=== PATIENT | male | born 1940 | race Caucasian/White ===

== ENCOUNTER 2019-08-13 14:12 | Inpatient (IN) | payer MEDICARE, BC ==
[~2019-08-13] VITALS: Ht 170.2 cm; Wt 110.5 kg
[2019-08-13] MEDS ORDERED: NEURONTIN600 MG PO (14:48)
[2019-08-13] MEDS ORDERED: METOPROLOL TART25 MG PO (14:48)
[2019-08-13] MEDS ORDERED: NAPROXEN250 MG PO (14:48)
[2019-08-13] MEDS ORDERED: GLIPIZIDE10 MG PO (14:49)
[2019-08-13] MEDS ORDERED: LISINOPRIL10 MG PO (14:49)
[2019-08-13] MEDS ORDERED: POTASSIUM CHLO10 ME1 PO (14:49)
[2019-08-13] MEDS ORDERED: FUROSEMIDE20 MG PO (14:49)
[2019-08-13 15:21] LABS: BASOPHILS 0.3 % (0-2); EOSINOPHILS 0.3 % (0-7); HEMATOCRIT 36.6 % (42.0-54.0); HEMOGLOBIN 13.2 g/dL (13.5-17.5); IMMATURE GRANULOCYTES 0.8 % (0-5); LYMPHOCYTES 8.9 % (15-50); MCH 30.8 pg (26.0-34.0); MCHC 36.1 g/dL (31.0-37.0); MCV 85.5 fL (80.0-100.0); MEAN PLATELET VOLUME 10.4 fL (7.4-10.4); MONOCYTES 7.7 % (2-11); PLATELET COUNT 185 10x3/uL (130-400); RBC 4.28 10x6/uL (4.20-6.10); WBC 7.8 10x3/uL (4.8-10.8)
[2019-08-13 15:41] LABS: APTT 35.7 SECONDS (22.8-39.4); INR 1.27 (0.85-1.17); PROTIME 15.8 SECONDS (11.6-15.0)
[2019-08-13 16:19] LABS: ALKALINE PHOSPHATASE 167 U/L (46-116); ALT (SGPT) 19 U/L (10-68); BILIRUBIN - TOTAL 1.15 mg/dL (0.2-1.3); CALCIUM 8.5 mg/dL (8.5-10.1); CARBON DIOXIDE 23.9 mmol/L (21.0-32.0); CKMB 1.6 U/L (0.0-3.6); CREATINE KINASE 53 UL (21-232); CREATININE - SERUM 0.8 mg/dL (0.6-1.3); GLUCOSE 181 mg/dL (74-106); POTASSIUM - SERUM 4.5 mmol/L (3.5-5.1); PRO BNP 1732 pg/mL (0-450); PROTEIN - SERUM 7.1 g/dL (6.4-8.2); UREA NITROGEN 8 mg/dL (7-18); eGFR NON AFRICAN AMERICAN > 90 mL/min (90-120)
[2019-08-13 16:20] LABS: CALC OSMOLALITY 233 mosm/kg (275-300); TROPONIN-I < 0.017 ng/mL (0.000-0.060)
[2019-08-13 16:22] LABS: CHLORIDE - SERUM 81 mmol/L (98-107); SODIUM 114 mmol/L (136-145)
--- NOTE | 2019-08-13 19:02 | NUR ---
GETTING READY TO TRANSPORT PT AND CALLED BACK AND STATED ROOM WAS DIRTY
[2019-08-13] MEDS ORDERED: LEVOFLOXACIN500 MG PO (21:48)
[2019-08-13 21:49] VITALS: BP 185/94; Ht 170.2 cm; Wt 110.5 kg
--- NOTE | 2019-08-13 21:55 | NUR ---
RECIEVED REPORT FROM ER. PT ARRIVED BY BED. VSS, AAOX3, APPEARS LETHARGIC. FAMILY AT BEDSIDE. BP 185/94 AT THIS TIME. WILL NOTIFY SENIOR ACCOUNTING MANAGER OUTDOOR GUIDE. RENAL AND INSURANCE CODER PAGED ORDERED BY GAMAL ROJO. AWAITING CALL-BACK AT THIS TIME. AZITHROMYCIN STARTED ORDERED. INITIAL ASSESSMENT COMPLETED. PT DENIES ANY FURTHER NEEDS AT THIS TIME. WILL CPOC. CL WITHIN REACH.
--- NOTE | 2019-08-13 23:09 | NUR ---
CLONIDINE 0.1MG GIVEN FOR BP OF 185/9. WILL CTM.
--- NOTE | 2019-08-13 23:10 | NUR ---
PAGED BOTH RENAL AND PULMONOLOGY FOR THE SECOND TIME, STILL NO CALL-BACK AT THIS TIME.
[2019-08-13 23:30] VITALS: BP 188/82
[2019-08-14 01:36] LABS: CALCIUM 8.2 mg/dL (8.5-10.1); CARBON DIOXIDE 22.3 mmol/L (21.0-32.0); CREATININE - SERUM 0.7 mg/dL (0.6-1.3); GLUCOSE 172 mg/dL (74-106); POTASSIUM - SERUM 4.3 mmol/L (3.5-5.1); UREA NITROGEN 6 mg/dL (7-18); eGFR NON AFRICAN AMERICAN > 90 mL/min (90-120)
[2019-08-14 01:37] LABS: CALC OSMOLALITY 236 mosm/kg (275-300)
[2019-08-14 01:38] LABS: CHLORIDE - SERUM 83 mmol/L (98-107); SODIUM 116 mmol/L (136-145)
--- NOTE | 2019-08-14 02:07 | NUR ---
RECIEVED REPORT SBOUT PT'S LAB RESULTS SODIUM 116, CHLORIDE 83. NOTIFIED CIRILO YEUNG. GAMAL KERR PAGED DR. RO. NO CALL-BACK FROM DR. RO AT THIS TIME. PLUMBING FOREMAN ALSO PAGED FOR THE THIRD TIME, NO CALL-BACK EITHER. WILL CTM PT.
[2019-08-14 04:00] VITALS: BP 187/92
[2019-08-14 06:20] LABS: BASOPHILS 0.2 % (0-2); EOSINOPHILS 0.4 % (0-7); HEMATOCRIT 34.9 % (42.0-54.0); HEMOGLOBIN 12.8 g/dL (13.5-17.5); LYMPHOCYTES 12.2 % (15-50); MCH 30.9 pg (26.0-34.0); MCHC 36.7 g/dL (31.0-37.0); MCV 84.3 fL (80.0-100.0); MEAN PLATELET VOLUME 10.3 fL (7.4-10.4); MONOCYTES 10.5 % (2-11); NEUTROPHILS 75.7 % (40-80); PLATELET COUNT 203 10x3/uL (130-400); RBC 4.14 10x6/uL (4.20-6.10); RDW 12.9 % (11.5-14.5)
[2019-08-14 06:36] LABS: CALCIUM 8.5 mg/dL (8.5-10.1); CARBON DIOXIDE 23.4 mmol/L (21.0-32.0); CREATININE - SERUM 0.8 mg/dL (0.6-1.3); GLUCOSE 166 mg/dL (74-106); MAGNESIUM - SERUM 1.7 mg/dL (1.8-2.4); PHOSPHOROUS 3.3 mg/dL (2.5-4.9); POTASSIUM - SERUM 4.4 mmol/L (3.5-5.1); UREA NITROGEN 7 mg/dL (7-18); eGFR NON AFRICAN AMERICAN > 90 mL/min (90-120)
[2019-08-14 06:39] LABS: CALC OSMOLALITY 239 mosm/kg (275-300)
[2019-08-14 06:40] LABS: CHLORIDE - SERUM 84 mmol/L (98-107); SODIUM 118 mmol/L (136-145)
--- NOTE | 2019-08-14 07:36 | NUR ---
PT RESTING. RR EVEN AND UNLABORED. DENIES NEEDS OR PAIN AT THIS TIME. FAMILY MEMEBER @ BEDSIDE. BED IN LOWEST POSITION. CALL LIGHT WITHIN REACH. WILL CONTINUE TO MONITOR.
[2019-08-14 08:27] VITALS: BP 172/86
[2019-08-14 10:40] LABS: APPEARANCE CLEAR (CLEAR); BACTERIA FEW /hpf (NEGATIVE); BILIRUBIN NEGATIVE (NEGATIVE); COLOR YELLOW (YELLOW); EPITHELIAL CELLS OCC /hpf (0-5); GLUCOSE 100 mg/dL (NEGATIVE); KETONE LARGE mg/dL (NEGATIVE); NITRITE NEGATIVE (NEGATIVE); PROTEIN TRACE mg/dL (NEGATIVE); RED CELLS - URINE OCC /hpf (0-5); SPECIFIC GRAVITY 1.015 (1.005-1.020); WHITE CELLS - URINE RARE /hpf (NEGATIVE)
[2019-08-14 11:11] VITALS: BP 172/91
[2019-08-14 12:33] LABS: CALCIUM 8.2 mg/dL (8.5-10.1); CARBON DIOXIDE 24.6 mmol/L (21.0-32.0); CREATININE - SERUM 0.8 mg/dL (0.6-1.3); GLUCOSE 194 mg/dL (74-106); POTASSIUM - SERUM 4.6 mmol/L (3.5-5.1); eGFR NON AFRICAN AMERICAN > 90 mL/min (90-120)
[2019-08-14 12:35] LABS: CALC OSMOLALITY 238 mosm/kg (275-300); UREA NITROGEN 9 mg/dL (7-18)
[2019-08-14 12:39] LABS: CHLORIDE - SERUM 84 mmol/L (98-107); SODIUM 116 mmol/L (136-145)
--- NOTE | 2019-08-14 15:03 | NUR ---
OT NOTE: ATTEMPTED INITITAL EVAL.. FAMILY MEMBER AT BEDSIDE. PT REPORTS THAT HIS SONS LIVE WITH HIM. STATES THAT HE WAS NOT USING AD OR 02 AT HOME PRIOR TO ADMISSION. STATES THAT HE WAS PERFORMING ADLS WITHOUT ASSIST. PT REQUESTED TO WAIT UNTIL TOMORROW TO COMPLETE EVAL. STATES THAT HE JUST GOT BACK IN BED AFTER WALKING TO BATHROOM WITH ASSIST FROM SON. STATES THAT HE HAS INCREASED DIFFICULTY GETTING IN AND OUT OF BED AND WAS FINALLY NOW COMFORTABLE. WILL COMPLETE FULL EVAL TOMORROW. THANK YOU FOR REFERAL, KEESHA SPENCER, OTR/L [phone]
[2019-08-14 15:06] VITALS: BP 171/83
--- NOTE | 2019-08-14 15:08 | NUR ---
OT NOTE: PT OUT OF ROOM DURING ATTEMPT OF EVAL. WILL ASSESS TOMORROW. KEESHA SWEET, OTR/L
--- NOTE | 2019-08-14 15:25 | NUR ---
I have reviewed this patient and I concur with the Shift Assessment completed by the Licensed Practical Nurse today this shift.
[2019-08-14 18:15] LABS: CALCIUM 8.3 mg/dL (8.5-10.1); CARBON DIOXIDE 25.7 mmol/L (21.0-32.0); CREATININE - SERUM 0.8 mg/dL (0.6-1.3); GLUCOSE 178 mg/dL (74-106); POTASSIUM - SERUM 4.2 mmol/L (3.5-5.1); UREA NITROGEN 7 mg/dL (7-18); eGFR NON AFRICAN AMERICAN > 90 mL/min (90-120)
[2019-08-14 18:20] LABS: CALC OSMOLALITY 238 mosm/kg (275-300); CHLORIDE - SERUM 83 mmol/L (98-107); SODIUM 117 mmol/L (136-145)
--- NOTE | 2019-08-14 19:15 | NUR ---
REPORT RECEIVED, WILL CONTINUE POC. PATIENT IS AAOX4, IN HIGH FOWLERS POSITION. PIV TO LT FA, ABX INFUSING AT THIS TIME. NO S/S OF DISTRESS OBSERVED AT THIS TIME, RR EVEN AND UNLABORED. PATIENT DENIES NEEDS AT THIS TIME. CL IN REACH, BED LOCKED AND LOWERED. WILL CTM.
[2019-08-14 20:00] VITALS: BP 146/80
--- NOTE | 2019-08-14 20:00 | NUR ---
PIV TO LT FA INFILTRATED, DC'D WITH CATH TIP INTACT, SECURED WITH BANDAID. NEW PIV TO LT HAND WITH 20G X1 ATTEMPT, GOOD BLOOD RETURN, FLUSHED WITH EASE. INFUSING THAT LAST OF ABX. PATIENT TOLERATED WELL.
[2019-08-14 23:00] VITALS: BP 152/73
--- NOTE | 2019-08-15 00:02 | NUR ---
PATIENT SON TO NURSES STATION CONCERNED ABOUT PATIENT INTERMITTENTLY JERKING HIS LEGS IN HIS SLEEP. CHECK ON PATIENT, VSS, WARM BLANKET APPLIED.
[2019-08-15 04:00] VITALS: BP 142/56
[2019-08-15 04:33] LABS: BASOPHILS 0.3 % (0-2); EOSINOPHILS 1.7 % (0-7); HEMATOCRIT 36.4 % (42.0-54.0); HEMOGLOBIN 13.1 g/dL (13.5-17.5); LYMPHOCYTES 16.2 % (15-50); MCH 30.5 pg (26.0-34.0); MCV 84.8 fL (80.0-100.0); MEAN PLATELET VOLUME 10.4 fL (7.4-10.4); MONOCYTES 14.5 % (2-11); NEUTROPHILS 66.3 % (40-80); PLATELET COUNT 224 10x3/uL (130-400); RBC 4.29 10x6/uL (4.20-6.10); RDW 13.1 % (11.5-14.5)
[2019-08-15 04:40] LABS: WBC 10.3 10x3/uL (4.8-10.8)
[2019-08-15 04:57] LABS: CALC OSMOLALITY 244 mosm/kg (275-300); CALCIUM 8.5 mg/dL (8.5-10.1); CARBON DIOXIDE 25.1 mmol/L (21.0-32.0); CHLORIDE - SERUM 87 mmol/L (98-107); CREATININE - SERUM 0.8 mg/dL (0.6-1.3); GLUCOSE 138 mg/dL (74-106); PHOSPHOROUS 3.9 mg/dL (2.5-4.9); POTASSIUM - SERUM 3.8 mmol/L (3.5-5.1); SODIUM 121 mmol/L (136-145); THYROID STIMULATING HORMONE 1.26 uIU/mL (0.36-3.74); eGFR NON AFRICAN AMERICAN > 90 mL/min (90-120)
[2019-08-15 04:58] LABS: UREA NITROGEN 10 mg/dL (7-18)
--- NOTE | 2019-08-15 07:21 | NUR ---
PT RESTING. RR EVEN AND UNLABORED. FAMILY MEMBER AT BEDSIDE. NO DISTRESS NOTED. BED IN LOWEST POSITION. CALL LIGHT WITHIN REACH. WILL CONTINUE TO MONITOR.
[2019-08-15 08:48] VITALS: BP 168/68
--- NOTE | 2019-08-15 12:01 | NUR ---
I have reviewed this patient and I concur with the Shift Assessment completed by the Licensed Practical Nurse today this shift.
[2019-08-15 13:18] VITALS: BP 157/73
--- NOTE | 2019-08-15 15:52 | NUR ---
PT LEFT FOR PROCEDURE VIA BED. CONSENTS SIGNED AND IN CHART
[2019-08-15 17:09] LABS: PROTEIN - BODY FLUID 2.6 G/DL
[2019-08-15 17:14] VITALS: BP 142/76
--- NOTE | 2019-08-15 19:15 | NUR ---
REPORT RECEIVED, WILL CONTINUE POC. PATIENT IS AAOX4, SITTING UP IN BED, FAMILY AT BED. NO S/S OF DISTRESS OBSERVED, RR EVEN AND UNLABORED ON ROOM AIR. PATIENT DENIES NEEDS AT THIS TIME. CL IN REACH, BED LOCKED AND LOWERED. WILL CTM.
--- NOTE | 2019-08-15 19:50 | NUR ---
PT C/O PAIN AT THORACENTESIS SITE. PAGED GAMAL THAPA FOR PAIN MEDS. AWAITING CALLBACK.
[2019-08-15 20:00] VITALS: BP 141/68
[2019-08-16] VITALS (7 sets, daily range): BP systolic 121–166; BP diastolic 65–100
--- NOTE | 2019-08-16 05:10 | NUR ---
I have reviewed this patient and I concur with the Shift Assessment completed by the Licensed Practical Nurse today this shift.
[2019-08-16 05:21] LABS: BASOPHILS 0.2 % (0-2); EOSINOPHILS 1.6 % (0-7); HEMATOCRIT 38.4 % (42.0-54.0); HEMOGLOBIN 13.7 g/dL (13.5-17.5); MCH 30.6 pg (26.0-34.0); MCHC 35.7 g/dL (31.0-37.0); MCV 85.7 fL (80.0-100.0); MEAN PLATELET VOLUME 9.8 fL (7.4-10.4); MONOCYTES 13.3 % (2-11); NEUTROPHILS 72.9 % (40-80); PLATELET COUNT 199 10x3/uL (130-400); RBC 4.48 10x6/uL (4.20-6.10); RDW 13.2 % (11.5-14.5); WBC 9.3 10x3/uL (4.8-10.8)
[2019-08-16 05:39] LABS: CALC OSMOLALITY 258 mosm/kg (275-300); CALCIUM 8.4 mg/dL (8.5-10.1); CARBON DIOXIDE 28.9 mmol/L (21.0-32.0); CHLORIDE - SERUM 92 mmol/L (98-107); CREATININE - SERUM 0.8 mg/dL (0.6-1.3); GLUCOSE 190 mg/dL (74-106); PHOSPHOROUS 4.2 mg/dL (2.5-4.9); POTASSIUM - SERUM 3.5 mmol/L (3.5-5.1); SODIUM 127 mmol/L (136-145); UREA NITROGEN 11 mg/dL (7-18); eGFR NON AFRICAN AMERICAN > 90 mL/min (90-120)
--- NOTE | 2019-08-16 07:30 | NUR ---
REPORT RECIEVED. PT CURRENTLY RECIEVING BREATHING TREATMENT WITH RT. HE HAS A L HAND PIV THAT IS SL. PT IS AWARE OF FLUID REST. OF 1200ML/DAY. BED LOCKED AND IN LOWEST POSITION, CALL LIGHT WITHIN REACH. WILL CTM
--- NOTE | 2019-08-16 19:00 | NUR ---
PTs SON CAME RUNNING TO NURSES STATION STATING THAT PT WAS HAVING A "SEIZURE" UPON ARRIVAL PTS BILATERAL UPPER EXTREMITIES SHAKING. PT A&O X4 AND STATED THAT HE WAS "JUST COLD" FSBS 240, BP 146/100 HR100 SPO2 97% AND WAS ASSES BY RTT. NOTIFIED ALIA RICHARDSON APN, RECEIVED ORDERS FOR STAT CBC AND BMP. PT NO LONGER SHAKING, CALL LIGHT IN REACH, WILL CTM.
[2019-08-16 20:24] LABS: BASOPHILS 0.5 % (0-2); EOSINOPHILS 1.6 % (0-7); HEMATOCRIT 39.3 % (42.0-54.0); HEMOGLOBIN 13.8 g/dL (13.5-17.5); IMMATURE GRANULOCYTES 0.8 % (0-5); MCH 30.8 pg (26.0-34.0); MCHC 35.1 g/dL (31.0-37.0); MCV 87.7 fL (80.0-100.0); MEAN PLATELET VOLUME 9.7 fL (7.4-10.4); MONOCYTES 3.9 % (2-11); NEUTROPHILS 82.2 % (40-80); PLATELET COUNT 179 10x3/uL (130-400); RBC 4.48 10x6/uL (4.20-6.10); RDW 13.2 % (11.5-14.5); WBC 6.5 10x3/uL (4.8-10.8)
[2019-08-16 20:43] LABS: CALC OSMOLALITY 262 mosm/kg (275-300); CALCIUM 7.9 mg/dL (8.5-10.1); CARBON DIOXIDE 29.7 mmol/L (21.0-32.0); CHLORIDE - SERUM 93 mmol/L (98-107); GLUCOSE 229 mg/dL (74-106); POTASSIUM - SERUM 3.4 mmol/L (3.5-5.1); SODIUM 128 mmol/L (136-145); UREA NITROGEN 10 mg/dL (7-18); eGFR NON AFRICAN AMERICAN 77 mL/min (90-120)
[2019-08-17 04:36] VITALS: BP 148/90
[2019-08-17 06:08] LABS: BASOPHILS 0.5 % (0-2); EOSINOPHILS 2.8 % (0-7); HEMATOCRIT 39.9 % (42.0-54.0); HEMOGLOBIN 13.8 g/dL (13.5-17.5); IMMATURE GRANULOCYTES 0.8 % (0-5); LYMPHOCYTES 8.7 % (15-50); MCH 30.5 pg (26.0-34.0); MCHC 34.6 g/dL (31.0-37.0); MCV 88.3 fL (80.0-100.0); MEAN PLATELET VOLUME 9.9 fL (7.4-10.4); MONOCYTES 10.8 % (2-11); NEUTROPHILS 76.4 % (40-80); PLATELET COUNT 183 10x3/uL (130-400); RBC 4.52 10x6/uL (4.20-6.10); RDW 13.6 % (11.5-14.5)
[2019-08-17 06:22] LABS: CALC OSMOLALITY 264 mosm/kg (275-300); CALCIUM 8.2 mg/dL (8.5-10.1); CARBON DIOXIDE 28.9 mmol/L (21.0-32.0); CHLORIDE - SERUM 94 mmol/L (98-107); CREATININE - SERUM 0.8 mg/dL (0.6-1.3); GLUCOSE 196 mg/dL (74-106); PHOSPHOROUS 4.3 mg/dL (2.5-4.9); POTASSIUM - SERUM 3.4 mmol/L (3.5-5.1); SODIUM 130 mmol/L (136-145); UREA NITROGEN 9 mg/dL (7-18); eGFR NON AFRICAN AMERICAN > 90 mL/min (90-120)
[2019-08-17 06:26] LABS: WBC 8.3 10x3/uL (4.8-10.8)
[2019-08-17 08:00] VITALS: BP 134/81
--- NOTE | 2019-08-17 08:02 | NUR ---
REPORT RECIEVED. PT SITTING SEMI FOWLERS IN BED. RR EVEN AND NONLABORED ON 2L NC. PT HAS A R HAND PIV THAT IS SL. PT UNDERSTANDS THAT HE IS ON A 1200 ML FLUID RESTRICTION. BED LOCKED AND IN LOWEST POSITION, CALL LIGHT WITHIN REACH. WILL CTM
[2019-08-17 12:00] VITALS: BP 144/74
[2019-08-17 16:00] VITALS: BP 141/72
--- NOTE | 2019-08-17 19:00 | NUR ---
REPORT RECEIVED. PT UP IN BED WATCHING TV. RR EVEN AND UNLABORED ON 3L NC. NO S/SX OF DISTRESS OBSERVED AT THIS TIME. PT DENIES PAIN OR DISCOMFORT AT THIS TIME. PT HAS NO IV AND IS REFUSING ONE AT THIS TIME. NO NEEDS EXPRESSED. CALL LIGHT IN REACH. WILL CTM.
[2019-08-17 20:30] VITALS: BP 128/44
[2019-08-18 00:20] VITALS: BP 159/80
[2019-08-18 04:30] VITALS: BP 131/80
[2019-08-18 05:32] LABS: BASOPHILS 0.5 % (0-2); HEMATOCRIT 41.2 % (42.0-54.0); HEMOGLOBIN 14.1 g/dL (13.5-17.5); IMMATURE GRANULOCYTES 0.6 % (0-5); LYMPHOCYTES 14.9 % (15-50); MCH 30.7 pg (26.0-34.0); MCHC 34.2 g/dL (31.0-37.0); MCV 89.8 fL (80.0-100.0); MEAN PLATELET VOLUME 9.7 fL (7.4-10.4); MONOCYTES 10.9 % (2-11); NEUTROPHILS 69.1 % (40-80); PLATELET COUNT 205 10x3/uL (130-400); RBC 4.59 10x6/uL (4.20-6.10); RDW 13.5 % (11.5-14.5); WBC 8.3 10x3/uL (4.8-10.8)
[2019-08-18 05:44] LABS: CALC OSMOLALITY 265 mosm/kg (275-300); CALCIUM 8.3 mg/dL (8.5-10.1); CARBON DIOXIDE 32.3 mmol/L (21.0-32.0); CHLORIDE - SERUM 93 mmol/L (98-107); CREATININE - SERUM 0.9 mg/dL (0.6-1.3); GLUCOSE 214 mg/dL (74-106); PHOSPHOROUS 4.1 mg/dL (2.5-4.9); POTASSIUM - SERUM 3.6 mmol/L (3.5-5.1); SODIUM 130 mmol/L (136-145); UREA NITROGEN 9 mg/dL (7-18); eGFR NON AFRICAN AMERICAN 87 mL/min (90-120)
--- NOTE | 2019-08-18 07:27 | NUR ---
PT RECEIVED SITTING UP IN BED, COMPLAINTS OF ITCHING TO BACK. AREA OF BRUISING AND OPENED BLISTER NOTED. STATES ITS FROM THORACENTESIS SITE.
[2019-08-18 08:09] VITALS: BP 122/47
[2019-08-18 11:32] VITALS: BP 118/54
[2019-08-18] MEDS ORDERED: LASIX40 MG PO (14:17)
[2019-08-18] MEDS ORDERED: TESSALON PERLE100 MG PO (14:18)
[2019-08-18] MEDS ORDERED: IPRAT-ALBUT 0.5-3 ML INH (14:18)
[2019-08-18] MEDS ORDERED: PROTONIX40 MG PO (14:18)
[2019-08-18] MEDS ORDERED: SINGULAIR10 MG PO (14:18)
[2019-08-18] MEDS ORDERED: PULMICORT0.5 MG/21 UPD (14:18)
--- NOTE | 2019-08-18 14:44 | NUR ---
UPON ADMIT PATIENT HAS NOT HAD A FLU SHOT. WHEN QUESTIONED, HE STATES THAT HE IS ALLERGIC TO THE EGG IN IT. THIS IS NOT ON ALLERGY LIST. MARTÍN ARELLANO PRIMARY NURSE TO ADD THIS TO LIST.
[2019-08-18 15:22] VITALS: BP 131/69
--- NOTE | 2019-08-18 15:35 | NUR ---
DISCHARGE INSTRUCTIONS REVIEWED WITH PT AND SON. IV OUT, TELEMETRY REMOVED. SCRIPTS SENT TO [facility], PT AGREES.
--- NOTE | 2019-08-18 15:59 | NUR ---
OT NOTE: PT COMPLETED BED MOB TASKS WITH SPV/MOD I. PT COMPLETED SIT TO STAND WITH SPV. PT COMPLETED BUE AROM EXS AT EOB. [phone] THANK YOU, LETICIA MENDES
--- NOTE | 2019-08-18 17:03 | MORECARE ---
CASE MANAGEMENT DISCHARGE SUMMARY PATIENT: SANDRA OLVERA UNIT: [id number] ADM DATE: 08/13/19 AGE: 78 : 41 SEX: M ROOM/BED: D.2106 AUTHOR: DAYDAY,DOC PHYSICIAN: REFERRING PHYSICIAN: JUSTIN SUTTON MD DATE OF SERVICE: 08/18/19 Discharge Plan Patient Name: SANDRA OLVERA Facility: [facility]:[place] : 1940 Planned Disposition: Home Anticipated Discharge Date: 08/18/19 Discharge Date: Expected LOS: 5 Initial Reviewer: [email or web address] Initial Review Date: 08/18/2019 Generated: 08/18/19 6:03 pm Comments DCP- Discharge Planning Updated by [email or web address]: Marvin Rodriguez on 08/18/19 4:[address] Patient Name: SANDRA OLVERA Admission Status: ER Accout number: [id number] Admission Date: 08-13-2019 : 1940 Admission Diagnosis: Attending: JACK Current LOS: 5 Anticipated DC Date: 08-18-2019 Planned Disposition: Home Primary Insurance: MEDICARE A & B Discharge Planning Comments: CM MET WITH PT IN ROOM TO DISCUSS DISCHARGE PLANNING AND NEEDS. PT REPORTS LIVING AT HOME INDEPENDENTLY WITH HIS TWO SONS. PT HAS NEBULIZER AND CANE WITH NO MEDICAL EQUIPMENT PROVIDER PREFERENCE. PT HAS NO OUTSIDE SERVICES ASSISTING IN THE HOME. CM DISCUSSED AVAILABILITY OF HOME HEALTH, REHAB SERVICES AND MEDICAL EQUIPMENT. PT DENIES DISCHARGE NEEDS, REPORTS HIS SON WILL PICK HIM UP FOR DISCHARGE HOME. IMPORTANT MESSAGE FROM MEDICARE PROVIDED AND EXPLAINED. CHIEF NURSING EXECUTIVE NURSE NOTIFIED. Bag Machine Set Up Operator: Marvin Rodriguez DCPIA - Discharge Planning Initial Assessment Updated by [email or web address]: Marvin Rodriguez on 08/18/19 5:01 pm * Is the patient Alert and Oriented? Yes * How many steps to enter\exit or inside your home? RAMP * PCP DR. JH CHAVEZ, [facility] * Pharmacy [facility] IN [place] * Preadmission Environment Home with Family * ADLs Independent * Equipment Cane Nebulizer * Other Equipment NO MEDICAL EQUIPMENT PROVIDER PREFERECE * List name and contact numbers for known caregivers / representatives who currently or will assist patient after discharge: AIDA OLVERA, SON, * Verbal permission to speak to the caregivers and representatives has been obtained from the patient. Yes * Community resources currently utilized None * Please name any agencies selected above. NONE * Additional services required to return to the preadmission environment? No * Can the patient safely return to the preadmission environment? Yes * Has this patient been hospitalized within the prior 30 days at any hospital? No Coverage Notice Reviewer: [email or web address] Vu Rodriguez Notice Issued Date-Time: 08/18/2019 15:24 Notice Type: IM Discharge Notice Notice Delivered To: Patient Relationship to Patient: Spice Room Worker Name: Delivery Method: HAND - Hand Delivered Nicole Days: Prior Verbal Notification: Recipient Understood Notice: Yes Recipient Signature: Yes Med Rec Note Co-signed by Attending: Coverage Notice Comment: Patient Name: SANDRA OLVERA Page [phone] at 1703 All edits/amendments must be made on the electronic document DICTATION DATE: 08/18/191702 DIRECTOR INSTRUMENTATION: DARI 08/18/191702 RPT#: [id number] DC DATE: STATUS: ADM IN [facility] [address] [place] [address] END OF REPORT
== END 2019-08-18 15:35 | disposition home or self-care (01) | DRG 291 ==
LOC: D.ER 14:12 → D.M2 18:01
PROVIDERS: Family Medicine; Internal Medicine Nephrology; Internal Medicine Pulmonary Disease; Radiology Diagnostic Radiology; ADMIT Family Medicine; ATTEND Family Medicine
PROC: 0W993ZZ Drainage of Right Pleural Cavity, Percutaneous Approach (ICD-10-PCS; principal; 2019-08-15 15:15)
DX: I13.0 Hypertensive heart and chronic kidney disease with heart failure and stage 1 through stage 4 chronic kidney disease, or unspecified chronic kidney disease (principal); J18.9 Pneumonia, unspecified organism; I50.31 Acute diastolic (congestive) heart failure; E87.1 Hypo-osmolality and hyponatremia; N17.9 Acute kidney failure, unspecified; E11.65 Type 2 diabetes mellitus with hyperglycemia; D64.9 Anemia, unspecified; N18.9 Chronic kidney disease, unspecified; E11.22 Type 2 diabetes mellitus with diabetic chronic kidney disease; Z87.891 Personal history of nicotine dependence

== ENCOUNTER 2019-08-20 10:40 | Inpatient (IN) | payer MEDICARE, BC ==
[~2019-08-20] VITALS: Ht 170.2 cm; Wt 108.9 kg
[~2019-08-20 10:40] MED LIST: FUROSEMIDE20 MG PO; GLIPIZIDE10 MG PO; IPRAT-ALBUT 0.5-3 ML INH; LASIX40 MG PO; LEVOFLOXACIN500 MG PO; LISINOPRIL10 MG PO; METOPROLOL TART25 MG PO; NAPROXEN250 MG PO; NEURONTIN600 MG PO; POTASSIUM CHLO10 ME1 PO; PROTONIX40 MG PO; PULMICORT0.5 MG/21 UPD; SINGULAIR10 MG PO; TESSALON PERLE100 MG PO
[2019-08-20 11:14] LABS: BASOPHILS 0.3 % (0-2); EOSINOPHILS 3.5 % (0-7); HEMATOCRIT 38.3 % (42.0-54.0); HEMOGLOBIN 12.9 g/dL (13.5-17.5); IMMATURE GRANULOCYTES 0.8 % (0-5); MCH 29.9 pg (26.0-34.0); MCHC 33.7 g/dL (31.0-37.0); MCV 88.9 fL (80.0-100.0); MEAN PLATELET VOLUME 9.3 fL (7.4-10.4); MONOCYTES 8.4 % (2-11); PLATELET COUNT 176 10x3/uL (130-400); RBC 4.31 10x6/uL (4.20-6.10); RDW 13.2 % (11.5-14.5); WBC 5.9 10x3/uL (4.8-10.8)
[2019-08-20 11:37] LABS: ALBUMIN 2.6 g/dL (3.4-5.0); ALKALINE PHOSPHATASE 125 U/L (46-116); ALT (SGPT) 18 U/L (10-68); APTT 33.5 SECONDS (22.8-39.4); BILIRUBIN - TOTAL 1.13 mg/dL (0.2-1.3); CALC OSMOLALITY 268 mosm/kg (275-300); CALCIUM 7.9 mg/dL (8.5-10.1); CARBON DIOXIDE 31.3 mmol/L (21.0-32.0); CHLORIDE - SERUM 95 mmol/L (98-107); CREATININE - SERUM 0.8 mg/dL (0.6-1.3); GLUCOSE 210 mg/dL (74-106); INR 1.17 (0.85-1.17); POTASSIUM - SERUM 3.6 mmol/L (3.5-5.1); PROTEIN - SERUM 5.9 g/dL (6.4-8.2); PROTIME 14.9 SECONDS (11.6-15.0); SODIUM 131 mmol/L (136-145); UREA NITROGEN 12 mg/dL (7-18); eGFR NON AFRICAN AMERICAN > 90 mL/min (90-120)
--- NOTE | 2019-08-20 11:44 | NUR ---
PT ARRIVED WITH TRAUMA BAND #[id number]
[2019-08-20 12:59] VITALS: BP 141/75
--- NOTE | 2019-08-20 13:04 | NUR ---
DISCHARGED HOME WITH ALL BELONGINGS.
[2019-08-20 13:40] VITALS: BP 123/71
--- NOTE | 2019-08-20 13:42 | MORECARE ---
CASE MANAGEMENT DISCHARGE SUMMARY PATIENT: SANDRA OLVERA UNIT: [id number] ADM DATE: 08/20/19 AGE: 78 : 41 SEX: M ROOM/BED: D.2210 AUTHOR: MIKA NAYLOR PHYSICIAN: REFERRING PHYSICIAN: MINESH CRUZ MD DATE OF SERVICE: 08/20/19 Discharge Plan Patient Name: SANDRA OLVERA [facility] [facility] 1940 Planned Disposition: Anticipated Discharge Date: Discharge Date: 08/20/2019 Expected LOS: Initial Reviewer: [email or web address] Initial Review Date: 08/20/2019 Generated: 08/20/19 2:42 pm DCPIA - Discharge Planning Initial Assessment Updated by [email or web address]: Monique Bardales on 08/20/19 1:37 pm * Is the patient Alert and Oriented? Yes * How many steps to enter\exit or inside your home? Ramp * PCP Liz Epps APRN Dr. Miles * [facility]acy [facility] * Preadmission Environment Home with Family * ADLs Independent * Equipment Cane Nebulizer * Other Equipment NA * List name and contact numbers for known caregivers / representatives who currently or will assist patient after discharge: Prakash Olvera (son) [phone] (home) Tyrone Olvera (son) same * Verbal permission to speak to the caregivers and representatives has been obtained from the patient. Yes * Community resources currently utilized None * Please name any agencies selected above. NA * Additional services required to return to the preadmission environment? Yes * Can the patient safely return to the preadmission environment? Yes * Has this patient been hospitalized within the prior 30 days at any hospital? Yes Patient Name: SANDRA OLVERA Page [phone] at 1342 All edits/amendments must be made on the electronic document DICTATION DATE: 08/20/19 1342 MOLDER HELPER: DARI 08/20/19 1342 RPT#: [id number] DC DATE:08/20/19 STATUS: DIS IN [facility] [address] [place] [address] END OF REPORT
--- NOTE | 2019-08-20 13:52 | MORECARE ---
CASE MANAGEMENT DISCHARGE SUMMARY PATIENT: SANDRA ANDERSON UNIT: [id number] ADM DATE: 08/20/19 AGE: 78 : 41 SEX: M ROOM/BED: D.2210 AUTHOR: DAYDAY,DOC PHYSICIAN: REFERRING PHYSICIAN: MINESH CRUZ MD DATE OF SERVICE: 08/20/19 Discharge Plan Patient Name: SANDRA ANDERSON Facility: [facility]:[place] : 1940 Planned Disposition: Anticipated Discharge Date: Discharge Date: 08/20/2019 Expected LOS: Initial Reviewer: [email or web address] Initial Review Date: 08/20/2019 Generated: 08/20/19 2:51 pm DCP- Discharge Planning Updated by [email or web address]: Monique Bardales on 08/20/19 12:[address] CM met with patient to discuss initial discharge planning. Patient is in agreement to proceed with the assessment with his son, Prakash Anderson present. Verified patient's address and telephone number. Patient is alert/oriented. Stairs/steps: Ramp. PCP: Dr. Ginger Marrero APRN. Pharmacy: [facility]. Patient states they have been able to obtain all of their prescribed medications. Patient lives with sonPrakash cobb and Tyrone Anderson. . HHS: No. DME: [facility]. Patient gives permission to speak with family members: yes. Emergency contact: Either son, listed above. Patient is Independent ADL's, medication management, prior to admission. CM discussed the availability of HH, Rehab, DME services needed upon discharge. Patient plans to return to his previous environment and feels this will be a safe discharge. Patient was hospitalized within the past 30 days, just discharged 08/18. Patient denies the use of community resources ELECTRONIC WARFARE OFFICER. Transportation at time of discharge: Prakash or Tyrone Anderson (son) [phone]. CM will follow and assist with dc needs/plans PRN. Patient states he was unable to make his appointment with Dr. Miles due to today's event. He was able to obtain all of his prior discharge medications. DCPIA - Discharge Planning Initial Assessment Updated by [email or web address]: Monique Bardales on 08/20/19 1:37 pm * Is the patient Alert and Oriented? Yes * How many steps to enter\exit or inside your home? Ramp * PCP Liz Miles * Pharmacy [facility] * Preadmission Environment Home with Family * ADLs Independent * Equipment Cane Nebulizer * Other Equipment NA * List name and contact numbers for known caregivers / representatives who currently or will assist patient after discharge: Prakash Anderson (son) [phone] (home) Tyrone Anderson (son) same * Verbal permission to speak to the caregivers and representatives has been obtained from the patient. Yes * Community resources currently utilized None * Please name any agencies selected above. NA * Additional services required to return to the preadmission environment? Yes * Can the patient safely return to the preadmission environment? Yes * Has this patient been hospitalized within the prior 30 days at any hospital? Yes Last DP export: 08/20/19 12:42 p Patient Name: SANDRA ANDERSON Page [phone] at 1352 All edits/amendments must be made on the electronic document DICTATION DATE: 08/20/19 1351 HARNESS PLACER: DARI 08/20/19 1351 RPT#: [id number] DC DATE:08/20/19 STATUS: DIS IN [facility] [address] [place] [address] END OF REPORT
[2019-08-20] MEDS ORDERED: METFORMIN HCL500 M1 PO (14:49)
[2019-08-20 14:50] VITALS: BP 120/55; BMI 37.7
[2019-08-20] MEDS ORDERED: PRAVACHOL40 MG PO (14:50)
--- NOTE | 2019-08-20 15:16 | NUR ---
SPOKE WITH GAMAL HERNANDEZ TO GET DIET ORDER FOR PATIENT. STATES WILL GO SEE PATIENT AND PUT IN ORDER.
[2019-08-20 17:15] VITALS: BP 129/67
--- NOTE | 2019-08-20 17:26 | NUR ---
EDUCATION PROVIDED ON NEED FOR URINE. SUPPLIES IN ROOM. VERBALIZED UNDERSTANDING.
--- NOTE | 2019-08-20 17:40 | NUR ---
CONSENT OBTAINED FOR PROCEDURE TOMORROW. DENIES QUESTIONS.
[2019-08-20 18:56] LABS: APPEARANCE CLEAR (CLEAR); BILIRUBIN NEGATIVE (NEGATIVE); COLOR YELLOW (YELLOW); GLUCOSE NEGATIVE (NEGATIVE); KETONE NEGATIVE (NEGATIVE); NITRITE NEGATIVE (NEGATIVE); PROTEIN NEGATIVE (NEGATIVE); UROBILINOGEN NORMAL (NORMAL)
[2019-08-20 20:00] VITALS: BP 134/63
[2019-08-21] VITALS (11 sets, daily range): BP systolic 120–168; BP diastolic 48–85; Ht 170.2 cm; Wt 108.9 kg
--- NOTE | 2019-08-21 01:55 | NUR ---
ALRT AND EDEED ABLE TO VOICE NEEDS AND WANTS TO STAFF, NO S/S/ OF DISTRESS.
[2019-08-21 05:04] LABS: BASOPHILS 0.4 % (0-2); HEMATOCRIT 39.1 % (42.0-54.0); HEMOGLOBIN 13.2 g/dL (13.5-17.5); IMMATURE GRANULOCYTES 0.7 % (0-5); LYMPHOCYTES 14.8 % (15-50); MCH 30.6 pg (26.0-34.0); MCHC 33.8 g/dL (31.0-37.0); MCV 90.7 fL (80.0-100.0); MEAN PLATELET VOLUME 9.6 fL (7.4-10.4); MONOCYTES 7.7 % (2-11); NEUTROPHILS 72.4 % (40-80); PLATELET COUNT 178 10x3/uL (130-400); RBC 4.31 10x6/uL (4.20-6.10); RDW 13.4 % (11.5-14.5); WBC 7.2 10x3/uL (4.8-10.8)
[2019-08-21 05:13] LABS: CARBON DIOXIDE 31.7 mmol/L (21.0-32.0); CHLORIDE - SERUM 96 mmol/L (98-107); CREATININE - SERUM 0.9 mg/dL (0.6-1.3); GLUCOSE 189 mg/dL (74-106); SODIUM 131 mmol/L (136-145); eGFR NON AFRICAN AMERICAN 87 mL/min (90-120)
[2019-08-21 05:14] LABS: CALC OSMOLALITY 265 mosm/kg (275-300); POTASSIUM - SERUM 4.2 mmol/L (3.5-5.1); UREA NITROGEN 7 mg/dL (7-18)
--- NOTE | 2019-08-21 07:35 | NUR ---
ALERT AND ORIENTED. LUNGS CLEAR BILATERALLY. HEART SOUNDS S1 AND S2 HEARD IN ALL LANGE. BOWEL SOUNDS ACTIVE X 4. SKIN TEARS TO BILATERAL ELBOWS COVERED WITH FOAM MEPILEX. SKIN TEAR TO LFA WITH BANDAID. SCHEDULED FOR SURGERY FOR RIGHT HIP FX WITH DR GARCIA. REQUESTS MEDICATION FOR SORE THROAT TODAY. WILL TALK WITH HAT BRAIDER THIS AM. DENIES FURTHER NEEDS. BED LOW. FALL PRECAUTIONS IN PLACE. CALL FRAUSTO AND PERSONAL ITEMS IN REACH. WILL CONTINUE TO MONITOR.
--- NOTE | 2019-08-21 09:06 | NUR ---
O2 TURNED OFF. PATIENT SAT 97% ON ROOM AIR.
--- NOTE | 2019-08-21 14:17 | NUR ---
PATIENT RETURNED FROM PROCEDURE. DRSGS TO RIGHT HIP X 2 C/D/I. ICE PACK IN PLACE. DENIES PAIN. BED LOW. FALL PRECAUTIONS IN PLACE. CALL FRAUSTO AND PERSONAL ITEMS IN REACH. WILL CONTINUE TO MONITOR.
--- NOTE | 2019-08-21 14:52 | NUR ---
EDUCATION PROVIDED ON USE OF INCENTIVE SPIROMETER. DEMONSTRATED UNDERSTANDING.
--- NOTE | 2019-08-21 17:41 | NUR ---
RESTING IN BED. POST OP VITALS REMAIN STABLE. DENIES NEEDS. WILL CONTINUE TO MONITOR.
[2019-08-22] VITALS (7 sets, daily range): BP systolic 129–155; BP diastolic 62–91
--- NOTE | 2019-08-22 03:47 | NUR ---
aLERT AND ORENTED ABLE TO VOICE NEEDS AND WANTS TO STAFF. o2 AT 3L VIA N/C IN PLACE. IV TO LEFT FR. BED ALARM IN PLACE. DRESSING INTACT TO RIGHT LEG. PAIN CONTROLED WITH PRN PAIN MEDICATION. CHECKED OFTEN FOR NEEDS AND SAFETY.
[2019-08-22 07:12] LABS: BASOPHILS 0 % (0-2); EOSINOPHILS 0 % (0-7); HEMATOCRIT 36.3 % (42.0-54.0); IMMATURE GRANULOCYTES 0.4 % (0-5); LYMPHOCYTES 6.1 % (15-50); MCH 30.2 pg (26.0-34.0); MCHC 33.1 g/dL (31.0-37.0); MCV 91.2 fL (80.0-100.0); MEAN PLATELET VOLUME 10.5 fL (7.4-10.4); MONOCYTES 6.5 % (2-11); PLATELET COUNT 166 10x3/uL (130-400); RBC 3.98 10x6/uL (4.20-6.10); RDW 13.1 % (11.5-14.5)
[2019-08-22 07:18] LABS: WBC 9.1 10x3/uL (4.8-10.8)
[2019-08-22 07:27] LABS: CALCIUM 8.3 mg/dL (8.5-10.1); CHLORIDE - SERUM 98 mmol/L (98-107); POTASSIUM - SERUM 4.4 mmol/L (3.5-5.1); SODIUM 133 mmol/L (136-145); eGFR NON AFRICAN AMERICAN 77 mL/min (90-120)
[2019-08-22 07:28] LABS: CALC OSMOLALITY 280 mosm/kg (275-300); GLUCOSE 367 mg/dL (74-106); UREA NITROGEN 13 mg/dL (7-18)
--- NOTE | 2019-08-22 07:49 | NUR ---
ALERT AND ORIENTED. LUNGS CLEAR BILATERALLY. HEART SOUNDS S1 AND S2 HEARD IN ALL LANGE. BOWEL SOUNDS ACTIVE X 4. DRSG X 2 TO RIGHT HIP. SLIGHT DRAINAGE TO TOP DRSG. WILL MONITOR. SKIN TEARS TO BILATERAL ELBOWS COVERED WITH MEPILEX SPONGES. DENIES PAIN. DENIES NEEDS. BED LOW. FALL PRECAUTIONS IN PLACE. CALL FRAUSTO AND PERSONAL ITEMS IN REACH. WILL CONTINUE TO MONITOR.
--- NOTE | 2019-08-22 12:58 | NUR ---
SITTING IN CHAIR AT BEDSIDE. DENIES NEEDS. WILL CONTINUE TO MONITOR.
--- NOTE | 2019-08-22 15:45 | NUR ---
RESTING IN BED. DENIES NEEDS. WILL CONTINUE TO MONITOR.
--- NOTE | 2019-08-22 19:40 | NUR ---
PT SITTING UP IN BED WITHOUT DISTRESS, AOX4. PLAYING CARD GAME ON COMPUTER. DENIES NEEDS OR PAIN, STATES ON HAS PAIN WHEN HE MOVES WHICH IS A 12/10 BUT REFUSED PAIN MEDICATIN. DRESSING TO RIGHT HIP CDI. TOMY ON. IV LEFT FA INFUSING 1/2NS @ 100. CL IN REACH, WILL CTM
[2019-08-23] VITALS: BP 135/69; BP 149/84
[2019-08-23 06:48] LABS: BASOPHILS 0.1 % (0-2); EOSINOPHILS 0.4 % (0-7); HEMATOCRIT 33.9 % (42.0-54.0); HEMOGLOBIN 11.3 g/dL (13.5-17.5); IMMATURE GRANULOCYTES 0.6 % (0-5); LYMPHOCYTES 11.6 % (15-50); MCH 30.3 pg (26.0-34.0); MCHC 33.3 g/dL (31.0-37.0); MCV 90.9 fL (80.0-100.0); MEAN PLATELET VOLUME 10.5 fL (7.4-10.4); MONOCYTES 7.4 % (2-11); NEUTROPHILS 79.9 % (40-80); PLATELET COUNT 167 10x3/uL (130-400); RBC 3.73 10x6/uL (4.20-6.10); RDW 13.4 % (11.5-14.5)
[2019-08-23 06:53] LABS: WBC 12.2 10x3/uL (4.8-10.8)
[2019-08-23 07:03] LABS: CALC OSMOLALITY 270 mosm/kg (275-300); CALCIUM 8.1 mg/dL (8.5-10.1); CARBON DIOXIDE 28.7 mmol/L (21.0-32.0); CHLORIDE - SERUM 95 mmol/L (98-107); CREATININE - SERUM 0.8 mg/dL (0.6-1.3); POTASSIUM - SERUM 4.6 mmol/L (3.5-5.1); SODIUM 130 mmol/L (136-145); UREA NITROGEN 14 mg/dL (7-18); eGFR NON AFRICAN AMERICAN > 90 mL/min (90-120)
[2019-08-23 07:13] LABS: GLUCOSE 261 mg/dL (74-106)
--- NOTE | 2019-08-23 08:42 | NUR ---
PATIENT RECIEVED RESTING IN BED WITH EYES OPEN. REPORTS ITCHING TO BACK WITH NO REDNESS OR RASH NOTED. NOTIFIED RENO HARRELL APN FOR MEDICATION ORDER. DRESSING C/D/I TO RIGHT HIP. CL IN REACH
[2019-08-23 09:40] VITALS: BP 135/79
[2019-08-23 13:46] VITALS: BP 120/67
[2019-08-23 17:43] VITALS: BP 117/62
--- NOTE | 2019-08-23 19:15 | NUR ---
PATIENT IN BED RESTING WITH EYES OPEN. NO S/S OF DISTRESS. NO COMPLAINTS AT THIS TIME. PATIENT IV IN L FOREARM 1/2 NORMAL SALINE @ 30 ML/HR. IV IS PATENT WITHOUT REDNESS, SWELLING, OR TEDNERNESS. PATIENT IS POSTOP DAY 2 FOR R HIP. DRESSING C/D/I. PATIENT HAS SCDS. PATIENT USES URINAL. CALL LIGHT IN PLACE. WILL CONTINUE TO MONITOR.
[2019-08-23 20:00] VITALS: BP 101/68
--- NOTE | 2019-08-24 03:34 | NUR ---
I have reviewed this patient and I concur with the Shift Assessment completed by the Licensed Practical Nurse today this shift.
[2019-08-24 06:45] LABS: BASOPHILS 0.3 % (0-2); HEMATOCRIT 35.1 % (42.0-54.0); HEMOGLOBIN 11.5 g/dL (13.5-17.5); IMMATURE GRANULOCYTES 0.5 % (0-5); LYMPHOCYTES 17.4 % (15-50); MCH 29.7 pg (26.0-34.0); MCHC 32.8 g/dL (31.0-37.0); MCV 90.7 fL (80.0-100.0); MEAN PLATELET VOLUME 10.8 fL (7.4-10.4); NEUTROPHILS 68.8 % (40-80); PLATELET COUNT 176 10x3/uL (130-400); RBC 3.87 10x6/uL (4.20-6.10); RDW 13.5 % (11.5-14.5); WBC 9.3 10x3/uL (4.8-10.8)
--- NOTE | 2019-08-24 07:00 | NUR ---
PATIENT RECIEVED RESTING IN BED, DRESSING C/D/I TO RIGHT HIP. ALERT AND ORIENTED. PAIN RELIEVED WITH NORCO AND MORPHINE. CL IN REACH
[2019-08-24 07:01] LABS: CALC OSMOLALITY 276 mosm/kg (275-300); CALCIUM 8.1 mg/dL (8.5-10.1); CARBON DIOXIDE 31.8 mmol/L (21.0-32.0); CHLORIDE - SERUM 96 mmol/L (98-107); CREATININE - SERUM 0.9 mg/dL (0.6-1.3); GLUCOSE 280 mg/dL (74-106); POTASSIUM - SERUM 4.2 mmol/L (3.5-5.1); SODIUM 133 mmol/L (136-145); UREA NITROGEN 14 mg/dL (7-18); eGFR NON AFRICAN AMERICAN 87 mL/min (90-120)
[2019-08-24 09:21] VITALS: BP 136/67
[2019-08-24 12:25] VITALS: BP 105/72
--- NOTE | 2019-08-24 16:27 | NUR ---
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 he is post op day #3 from hip surgery, has medicare insurance, and is progressing well with therapy. we should be able to admit tomorrow. thank you for this eval. ari munson lpn clinical liasion
[2019-08-24 16:42] VITALS: BP 136/62
--- NOTE | 2019-08-24 19:15 | NUR ---
PATIENT ALERT AND ORIENTED WHEN ENTERING THE ROOM. BEDSIDE REPORT RECEIVED. PATIENT DENIES PAIN OR DISCOMFORT AT THIS TIME. ASSESSED SURGICAL SITE. REINFORCED ON PRIOR SHIFT. APPLIED LOTION TO PATIENT BACK PER REQUEST DENIES FURTHER NEEDS AT THIS TIME. EDUCATED PATIENT ON TURNING, COUGH, AND DEEP BREATHING. EDUCATED FURTHER ON STRONG COUGHING EFFORT AND TO REPOSITION FREQUENTLY DURING NIGHT. PATIENT STATES HE DOES NOT WANT TO LAY ON EITHER SIDE THAT HE PREFERS HIS BACK. INSTRUCED PATIENT EVEN A SLIGHT TURN ON SIDE WOULD HELP REPOSITION AND BENEFIT OVERALL HEALTH. PATIENT VERBALIZES UNDERSTANDING. CALL LIGHT IN REACH. CPOC.
[2019-08-24 20:00] VITALS: BP 116/78
--- NOTE | 2019-08-24 21:45 | NUR ---
PATIENT CONTINUES TO WATCH TV. REPORTS NO PAIN AT THIS TIME. COUGHS WITH GOOD EFFORT. PRODUCTIVE COUGH. ENCOURAGED PATIENT TO KEEP DEEP BREATHING, COUGHING, AND USING INCENTIVE SPIROMETER.
[2019-08-25] VITALS: BP 130/75
--- NOTE | 2019-08-25 02:48 | NUR ---
RESTING WITH NO SIGNS OR SYMPTOMS OF DISTRESS. CALL LIGHT IN REACH. CPOC.
[2019-08-25 04:00] VITALS: BP 140/60
[2019-08-25 04:37] LABS: BASOPHILS 0.3 % (0-2); EOSINOPHILS 3.8 % (0-7); HEMATOCRIT 37.4 % (42.0-54.0); HEMOGLOBIN 12.6 g/dL (13.5-17.5); IMMATURE GRANULOCYTES 0.9 % (0-5); LYMPHOCYTES 16.8 % (15-50); MCH 30.5 pg (26.0-34.0); MCHC 33.7 g/dL (31.0-37.0); MCV 90.6 fL (80.0-100.0); MEAN PLATELET VOLUME 10.6 fL (7.4-10.4); MONOCYTES 7.7 % (2-11); NEUTROPHILS 70.5 % (40-80); PLATELET COUNT 201 10x3/uL (130-400); RBC 4.13 10x6/uL (4.20-6.10); RDW 13.6 % (11.5-14.5)
[2019-08-25 04:39] LABS: CALC OSMOLALITY 272 mosm/kg (275-300); CALCIUM 8.4 mg/dL (8.5-10.1); CARBON DIOXIDE 33.6 mmol/L (21.0-32.0); CHLORIDE - SERUM 96 mmol/L (98-107); CREATININE - SERUM 0.9 mg/dL (0.6-1.3); SODIUM 133 mmol/L (136-145); UREA NITROGEN 15 mg/dL (7-18); eGFR NON AFRICAN AMERICAN 87 mL/min (90-120)
[2019-08-25 04:41] LABS: GLUCOSE 211 mg/dL (74-106)
--- NOTE | 2019-08-25 08:15 | NUR ---
PT RESTING IN BED. COMPLAINTS OF PAIN 02/12 AT THIS TIME. PAIN MEDICATIONS ADMINISTERED PER MD ORDERS. IV TO LEFT FOREARM WITH NS @ 30ML/HR INFUSING VIA PUMP. SITE WITHOUT REDNESS OR EDEMA. DRESSING INTACT TO RIGHT HIP. DENIES FURTHER NEEDS AT THIS TIME. CL WITHIN REACH. ENCOURGED TO CALL WITH NEEDS. CONTINUE POC
[2019-08-25 08:16] VITALS: BP 134/71
--- NOTE | 2019-08-25 08:35 | OP ---
PATIENT NAME: SANDRA OLVERA MEDICAL RECORD: [id number] :[birth year] LOCATION:D.[id number] ADMISSION DATE:08/20/19 SURGEON: ANDERS GARCIA MD DATE OF OPERATION: 08/21/2019 PREOPERATIVE DIAGNOSIS: Right intertrochanteric hip fracture. POSTOPERATIVE DIAGNOSIS: Right intertrochanteric hip fracture. PROCEDURE: Cephalomedullary fixation of right intertrochanteric hip fracture - gamma nail. SURGEON: Anders Garcia MD ANESTHESIA: General. INTRAOPERATIVE COMPLICATIONS: None. SUMMARY OF PATHOLOGIC FINDINGS: The patient had a nondisplaced intertrochanteric fracture consistent with preoperative radiographs. IMPLANTS USED: Gamma 3 cephalomedullary nail. OPERATIVE SUMMARY IN DETAIL: After obtaining the appropriate preoperative orthopedic surgery consent as well as anesthetic consultation, evaluation, and clearance, the patient was brought to the operating room and placed on the operating table in supine position. After adequate general laryngeal mask airway was administered, the patient was placed on the fracture table. The left leg was placed in the well leg hartman. The right leg was placed in the traction boot. All pressure points were well padded. He was held firmly to the fracture table and secured with the Colvin. After fluoroscopic evaluation of the fracture in both AP and lateral planes right hip was prepped and draped in routine sterile fashion. Under fluoroscopic guidance, an incision was made above the tip of the greater trochanter. An awl was utilized to perforate the cortex, ball-tipped guidewire was passed. Proximal reaming was then followed by insertion of the short gamma nail to the appropriate depth as seen on AP and lateral views of the hip. The central guidewire was then placed into the center-center position of the femoral head. Appropriate reaming was then followed by placement of the compression screw as the compression screw was placed to the appropriate depth with the appropriate tip apex distance, the derotational screw was locked and then backed off 2-1/2 turns for gamma 3 protocol. Compression was then undertaken using the compression screw. Having completed this, distal setscrew was likewise put into place under fluoroscopic guidance. Visualization was carried out both AP and lateral views of the entire component and fracture. These were submitted to radiologist for review. Wounds irrigated, closed in usual fashion. Sterile dressings were applied. The patient was awakened and taken to recovery room in stable condition. All final needle and sponge counts were correct. TRANSINT:[id number] Voice Confirmation ID: [id number] DOCUMENT ID: [id number] OPERATIVE REPORT [id number] SANDRA OLVERA MD, ANDERS THOMAS at 0835 CC: [id number] DICTATION DATE: 08/22/19 112 MOLD CAPPER HELPER: 08/22/19 1847 ADM IN [facility] [address] [place] [address]
[2019-08-25] MEDS ORDERED: NORCO-7.5 PO (10:45)
[2019-08-25] MEDS ORDERED: ACETAMINOPHEN325 MG PO (10:45)
[2019-08-25] MEDS ORDERED: ELIQUIS2.5 MG PO (10:45)
[2019-08-25] MEDS ORDERED: PROTONIX40 MG PO (10:46)
[2019-08-25] MEDS ORDERED: MIRALAX17 GM PO (10:46)
[2019-08-25] MEDS ORDERED: HUMALOG 30100 UNITS/ SC (10:47)
[2019-08-25 12:15] VITALS: BP 105/52
--- NOTE | 2019-08-25 14:13 | MORECARE ---
CASE MANAGEMENT DISCHARGE SUMMARY PATIENT: SANDRA ANDERSON UNIT: [id number] ADM DATE: 08/20/19 AGE: 78 : 41 SEX: M ROOM/BED: D.2210 AUTHOR: DAYDAY,DOC PHYSICIAN: REFERRING PHYSICIAN: MINESH CRUZ MD DATE OF SERVICE: 08/25/19 Discharge Plan Patient Name: SANDRA ANDERSON Facility: [facility]:[place] : 1940 Planned Disposition: Anticipated Discharge Date: Discharge Date: Expected LOS: Initial Reviewer: [email or web address] Initial Review Date: 08/20/2019 Generated: 08/25/19 3:13 pm Comments DCP- Discharge Planning Updated by [email or web address]: Vanessa England on 08/25/19 1:[address] LATE ENTRY 1313 CM RECEIVED A TELEPHONE CALL FROM CELENA WITH ACUTE REHAB AT [facility]. THE PATIENT IS ACCEPTED TODAY AND ASSIGNED TO ROOM 1113 B. CM ADVISED THE NAVIGATION TEACHER AND THE PRIMARY NURSE. CM TO THE BEDSIDE TO ADVISE THE PATIENT. EXPLAINED DISCHARGE IMM. PATIENT HAD NO QUESTIONS. VOICED NO CONCERNS. DISCHARGE IMM SERVED. SIGNED COPY TO THE PATIENT. SIGNED COPY TO HARD COVER CHART. DCP- Discharge Planning Updated by [email or web address]: Monique Bardales on 08/20/19 12:[address] CM met with patient to discuss initial discharge planning. Patient is in agreement to proceed with the assessment with his son, Prakash Anderson present. Verified patient's address and telephone number. Patient is alert/oriented. Stairs/steps: Ramp. PCP: Dr. Ginger Marrero APRN. [facility]acy[facility]. Patient states they have been able to obtain all of their prescribed medications. Patient lives with sonLuna cobb. . HHS: No. DME: [facility]. Patient gives permission to speak with family members: yes. Emergency contact: Either son, listed above. Patient is Independent ADL's, medication management, prior to admission. CM discussed the availability of HH, Rehab, DME services needed upon discharge. Patient plans to return to his previous environment and feels this will be a safe discharge. Patient was hospitalized within the past 30 days, just discharged 08/18. 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 Transportation at time of discharge: Prakash or Tyrone Anderson (son) [phone]. CM will follow and assist with dc needs/plans PRN. Patient states he was unable to make his appointment with Dr. Miles due to today's event. He was able to obtain all of his prior discharge medications. DCPIA - Discharge Planning Initial Assessment Updated by [email or web address]: Monique Bardales on 08/20/19 1:37 pm * Is the patient Alert and Oriented? Yes * How many steps to enter\exit or inside your home? Ramp * PCP Liz Epps RECTANGULAR TANK COOPER Dr. Miles * Pharmacy [facility] * Preadmission Environment Home with Family * ADLs Independent * Equipment Cane Nebulizer * Other Equipment NA * List name and contact numbers for known caregivers / representatives who currently or will assist patient after discharge: Prakash Anderson (son) [phone] (home) Tyrone Anderson (son) same * Verbal permission to speak to the caregivers and representatives has been obtained from the patient. Yes * Community resources currently utilized None * Please name any agencies selected above. NA * Additional services required to return to the preadmission environment? Yes * Can the patient safely return to the preadmission environment? Yes * Has this patient been hospitalized within the prior 30 days at any hospital? Yes Coverage Notice Reviewer: [id number] - Vanessa England Notice Issued Date-Time: 08/25/2019 13:52 Notice Type: IM Discharge Notice Notice Delivered To: Patient Relationship to Patient: Self Circulating Process Inspector Name: Delivery Method: HAND - Hand Delivered Nicole Days: Prior Verbal Notification: Recipient Understood Notice: Yes Recipient Signature: Yes Med Rec Note Co-signed by Attending: Coverage Notice Comment: CM SPOKE WITH THE PATIENT AT THE BEDSIDE TO EXPLAIN DISCHARGE IMM. THE PATIENT HAD NO QUESTIONS NOR VOICED ANY CONCERNS. SIGNATURE OBTAINED TO HARD COPY. ORGINIAL TO THE PATIENT AND ORIGINAL TO THE HARD COVER CHART. Last DP export: 08/20/19 12:52 p Patient Name: SANDRA ANDERSON Page [phone] at 1413 All edits/amendments must be made on the electronic document DICTATION DATE: 08/25/191412 TOWER LOADER OPERATOR: DM 08/25/19 141 RPT#: [id number] DC DATE: STATUS: ADM IN [facility] [address] [place] [address] END OF REPORT
--- NOTE | 2019-08-25 20:04 | NUR ---
OT NOTE: PT COMPLETED UB HYGIENE WITH SET UP. PT COMPLETED BED MOB WITH MOD/MAX A. [id number] THANK YOU, LETICIA MENDES
--- NOTE | 2019-08-26 09:24 | MORECARE ---
CASE MANAGEMENT DISCHARGE SUMMARY PATIENT: SANDRA ANDERSON UNIT: [id number] ADM DATE: 08/20/19 AGE: 78 : 41 SEX: M ROOM/BED: D.2210 AUTHOR: DAYDAY,DOC PHYSICIAN: REFERRING PHYSICIAN: MINESH CRUZ MD DATE OF SERVICE: 08/26/19 Discharge Plan Patient Name: SANDRA ANDERSON Facility: [facility]:[place] : 1940 Planned Disposition: Anticipated Discharge Date: Discharge Date: 08/25/2019 Expected LOS: Initial Reviewer: [email or web address] Initial Review Date: 08/20/2019 Generated: 08/26/19 10:24 am Comments DCP- Discharge Planning Updated by [email or web address]: Vanessa England on 08/25/19 1:[address] LATE ENTRY 1313 CM RECEIVED A TELEPHONE CALL FROM CELENA WITH ACUTE REHAB AT [facility]. THE PATIENT IS ACCEPTED TODAY AND ASSIGNED TO ROOM 1113 B. CM ADVISED THE PRODUCT APPLICATIONS ENGINEER AND THE PRIMARY NURSE. CM TO THE BEDSIDE TO ADVISE THE PATIENT. EXPLAINED DISCHARGE IMM. PATIENT HAD NO QUESTIONS. VOICED NO CONCERNS. DISCHARGE IMM SERVED. SIGNED COPY TO THE PATIENT. SIGNED COPY TO HARD COVER CHART. DCP- Discharge Planning Updated by [id number]: Monique Bardales on 08/20/19 12:[address] CM met with patient to discuss initial discharge planning. Patient is in agreement to proceed with the assessment with his son, Prakash Anderson present. Verified patient's address and telephone number. Patient is alert/oriented. Stairs/steps: Ramp. PCP: Dr. Ginger Marrero APRN. Pharmacy: [facility]. Patient states they have been able to obtain all of their prescribed medications. Patient lives with son'Luna garsia. . HHS: No. DME: [facility]. Patient gives permission to speak with family members: yes. Emergency contact: Either son, listed above. Patient is Independent ADL's, medication management, prior to admission. CM discussed the availability of HH, Rehab, DME services needed upon discharge. Patient plans to return to his previous environment and feels this will be a safe discharge. Patient was hospitalized within the past 30 days, just discharged 08/18. 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 Transportation at time of discharge: Prakash or Tyrone Anderson (son) [phone]. CM will follow and assist with dc needs/plans PRN. Patient states he was unable to make his appointment with Dr. Miles due to today's event. He was able to obtain all of his prior discharge medications. DCPIA - Discharge Planning Initial Assessment Updated by [id number]: Monique Bardales on 08/20/19 1:37 pm * Is the patient Alert and Oriented? Yes * How many steps to enter\exit or inside your home? Ramp * PCP Liz Epps APRN Dr. Miles * [facility]acy [facility] * Preadmission Environment Home with Family * ADLs Independent * Equipment Cane Nebulizer * Other Equipment NA * List name and contact numbers for known caregivers / representatives who currently or will assist patient after discharge: Prakash Anderson (son) [phone] (home) Tyrone Anderson (son) same * Verbal permission to speak to the caregivers and representatives has been obtained from the patient. Yes * Community resources currently utilized None * Please name any agencies selected above. NA * Additional services required to return to the preadmission environment? Yes * Can the patient safely return to the preadmission environment? Yes * Has this patient been hospitalized within the prior 30 days at any hospital? Yes Coverage Notice Reviewer: [id number] - Vanessa England Notice Issued Date-Time: 08/25/2019 13:52 Notice Type: IM Discharge Notice Notice Delivered To: Patient Relationship to Patient: Self Anchor Operator Name: Delivery Method: HAND - Hand Delivered Nicole Days: Prior Verbal Notification: Recipient Understood Notice: Yes Recipient Signature: Yes Med Rec Note Co-signed by Attending: Coverage Notice Comment: CM SPOKE WITH THE PATIENT AT THE BEDSIDE TO EXPLAIN DISCHARGE IMM. THE PATIENT HAD NO QUESTIONS NOR VOICED ANY CONCERNS. SIGNATURE OBTAINED TO HARD COPY. ORGINIAL TO THE PATIENT AND ORIGINAL TO THE HARD COVER CHART. Last DP export: 08/25/19 1:13 p Patient Name: SANDRA ANDERSON Page [phone] at 0924 All edits/amendments must be made on the electronic document DICTATION DATE: 08/26/19923 FILM LIBRARIAN: DM 08/26/19923 RPT#: [id number] DC DATE:08/25/19 STATUS: DIS IN [facility] [address] [place] [address] END OF REPORT
== END 2019-08-25 14:51 | DRG 481 ==
LOC: D.ER 10:40 → D.MS 12:31
PROVIDERS: Family Medicine; Orthopaedic Surgery; ADMIT Internal Medicine Nephrology; ATTEND Internal Medicine Nephrology
PROC: 0QH636Z Insertion of Intramedullary Internal Fixation Device into Right Upper Femur, Percutaneous Approach (ICD-10-PCS; principal; 2019-08-21 15:00)
DX: S72.144A Nondisplaced intertrochanteric fracture of right femur, initial encounter for closed fracture (principal); E87.1 Hypo-osmolality and hyponatremia; W19.XXXA Unspecified fall, initial encounter; Y92.000 Kitchen of unspecified non-institutional (private) residence as the place of occurrence of the external cause; E11.9 Type 2 diabetes mellitus without complications; E78.5 Hyperlipidemia, unspecified; N40.0 Benign prostatic hyperplasia without lower urinary tract symptoms; D64.9 Anemia, unspecified; J44.9 Chronic obstructive pulmonary disease, unspecified; I10 Essential (primary) hypertension

== ENCOUNTER 2020-03-22 18:58 | Inpatient (IN) | payer MEDICARE, BC ==
[~2020-03-22] VITALS: Ht 170.2 cm; Wt 107.7 kg
[~2020-03-22 18:58] MED LIST changes: +ACETAMINOPHEN325 MG PO; +ELIQUIS2.5 MG PO; +FLOMAX0.4 MG PO; +HUMALOG 30100 UNITS/ SC; +METFORMIN HCL500 M1 PO; +MIRALAX17 GM PO; +NORCO-7.5 PO; +PERCOCET 10-321 EAC1 PO; +PRAVACHOL40 MG PO
[2020-03-22 19:56] LABS: BASOPHILS 0.1 % (0-2); EOSINOPHILS 1.3 % (0-7); HEMATOCRIT 35.5 % (42.0-54.0); HEMOGLOBIN 11.7 g/dL (13.5-17.5); IMMATURE GRANULOCYTES 1.7 % (0-5); LYMPHOCYTES 20.2 % (15-50); MCH 30.1 pg (26.0-34.0); MCV 91.3 fL (80.0-100.0); MONOCYTES 9.6 % (2-11); NEUTROPHILS 67.1 % (40-80); RBC 3.89 10x6/uL (4.20-6.10); RDW 14.3 % (11.5-14.5); WBC 7.7 10x3/uL (4.8-10.8)
[2020-03-22 20:00] LABS: APTT 35.7 SECONDS (22.8-39.4); INR 1.1 (0.85-1.17); PROTIME 14.1 SECONDS (11.6-15.0)
[2020-03-22 20:02] LABS: PLATELET COUNT 187 10x3/uL (130-400)
[2020-03-22 20:04] LABS: CALC OSMOLALITY 263 mosm/kg (275-300); CALCIUM 8.5 mg/dL (8.5-10.1); CARBON DIOXIDE 33.7 mmol/L (21.0-32.0); CHLORIDE - SERUM 93 mmol/L (98-107); CREATININE - SERUM 0.7 mg/dL (0.6-1.3); POTASSIUM - SERUM 3.8 mmol/L (3.5-5.1); SODIUM 131 mmol/L (136-145); UREA NITROGEN 10 mg/dL (7-18); eGFR NON AFRICAN AMERICAN > 90 mL/min (90-120)
[2020-03-22 20:09] LABS: GLUCOSE 131 mg/dL (74-106)
[2020-03-22 20:23] LABS: ALBUMIN 2.7 g/dL (3.4-5.0); ALKALINE PHOSPHATASE 201 U/L (30-120); ALT (SGPT) 18 U/L (10-68); BILIRUBIN - TOTAL 0.67 mg/dL (0.2-1.3); CKMB 0.6 U/L (0.0-3.6); CREATINE KINASE 14 UL (21-232); MAGNESIUM - SERUM 1.7 mg/dL (1.8-2.4); PROTEIN - SERUM 7.2 g/dL (6.4-8.2)
[2020-03-22 20:25] LABS: TROPONIN-I < 0.017 ng/mL (0.000-0.060)
[2020-03-22 21:00] VITALS: BP 147/83
[2020-03-22 22:30] VITALS: BP 149/73
[2020-03-22 23:30] VITALS: BP 168/83
[2020-03-23] VITALS (12 sets, daily range): BP systolic 104–209; BP diastolic 55–127
[2020-03-23 02:03] LABS: CALC OSMOLALITY 263 mosm/kg (275-300); CALCIUM 8.3 mg/dL (8.5-10.1); CARBON DIOXIDE 31.6 mmol/L (21.0-32.0); CHLORIDE - SERUM 93 mmol/L (98-107); CKMB 0.4 U/L (0.0-3.6); CREATINE KINASE 17 UL (21-232); GLUCOSE 164 mg/dL (74-106); POTASSIUM - SERUM 3.8 mmol/L (3.5-5.1); SODIUM 130 mmol/L (136-145); TROPONIN-I < 0.017 ng/mL (0.000-0.060); UREA NITROGEN 10 mg/dL (7-18); eGFR NON AFRICAN AMERICAN 87 mL/min (90-120)
[2020-03-23 02:06] LABS: CREATININE - SERUM 0.9 mg/dL (0.6-1.3)
--- NOTE | 2020-03-23 05:55 | NUR ---
EKG DONE CARDIAZEM GTT CONTINUES AT 15 AND BUMEX GTT AT 10. HR 92 CONTROLLED AFIB BP 109/69. PATIENT VERBALIZES FEELING BETTER THIS AM EKG DONE
[2020-03-23 08:00] LABS: HEMATOCRIT 36.2 % (42.0-54.0); HEMOGLOBIN 12.1 g/dL (13.5-17.5); MCH 30.5 pg (26.0-34.0); MCHC 33.4 g/dL (31.0-37.0); MCV 91.2 fL (80.0-100.0); MEAN PLATELET VOLUME 10.3 fL (7.4-10.4); PLATELET COUNT 215 10x3/uL (130-400); RBC 3.97 10x6/uL (4.20-6.10); RDW 14.3 % (11.5-14.5); WBC 21.3 10x3/uL (4.8-10.8)
--- NOTE | 2020-03-23 08:10 | NUR ---
MEAL TRAY PROVIDED.
[2020-03-23 08:32] LABS: CALCIUM 8.8 mg/dL (8.5-10.1); CARBON DIOXIDE 30.1 mmol/L (21.0-32.0); CHLORIDE - SERUM 92 mmol/L (98-107); CKMB 0.3 U/L (0.0-3.6); CREATINE KINASE 18 UL (21-232); GLUCOSE 202 mg/dL (74-106); MAGNESIUM - SERUM 1.9 mg/dL (1.8-2.4); PHOSPHOROUS 6.1 mg/dL (2.5-4.9); SODIUM 130 mmol/L (136-145); TROPONIN-I < 0.017 ng/mL (0.000-0.060)
[2020-03-23 08:33] LABS: CALC OSMOLALITY 267 mosm/kg (275-300); CREATININE - SERUM 1.2 mg/dL (0.6-1.3); UREA NITROGEN 14 mg/dL (7-18)
[2020-03-23 08:34] LABS: POTASSIUM - SERUM 4.8 mmol/L (3.5-5.1); eGFR NON AFRICAN AMERICAN 62 mL/min (90-120)
[2020-03-23 08:42] LABS: EOSINOPHILS 2 % (0-7); LYMPHOCYTES 4 % (15-50); MONOCYTES 2 % (2-11); NEUTROPHILS 86 % (40-80); PLATELET ESTIMATE NORMAL
--- NOTE | 2020-03-23 12:15 | NUR ---
CONFIRMED WITH CHARIS ABRAMS TO TITRATE CARDIZEM NEEDED.
[2020-03-23 14:30] LABS: CKMB 0.2 U/L (0.0-3.6); CREATINE KINASE 22 UL (21-232); TROPONIN-I < 0.017 ng/mL (0.000-0.060)
--- NOTE | 2020-03-23 22:00 | NUR ---
PATIENT REPORTS NOT HAVING ANY OUTPUT TODAY, 4+ PITTING EDEMA NOTED TO BILATERAL LEGS, AND BILATERAL LOWER PELVIS.
--- NOTE | 2020-03-23 23:17 | NUR ---
BLADDER SCAN IN CVICU SHOWS 216CC URINE IN BLADDER
[2020-03-24] VITALS (41 sets, daily range): BP systolic 76–149; BP diastolic 36–77; BMI 35.3; BMI 35.2
[2020-03-24 04:39] LABS: BASOPHILS 0.1 % (0-2); HEMATOCRIT 33.3 % (42.0-54.0); HEMOGLOBIN 10.6 g/dL (13.5-17.5); IMMATURE GRANULOCYTES 2.1 % (0-5); LYMPHOCYTES 3.9 % (15-50); MCH 29.6 pg (26.0-34.0); MCHC 31.8 g/dL (31.0-37.0); MEAN PLATELET VOLUME 10.6 fL (7.4-10.4); NEUTROPHILS 87.9 % (40-80); PLATELET COUNT 194 10x3/uL (130-400); RBC 3.58 10x6/uL (4.20-6.10)
[2020-03-24 05:00] LABS: WBC 10.8 10x3/uL (4.8-10.8)
[2020-03-24 05:19] LABS: ANION GAP 10.4 mmol/L (8-16); CALCIUM 7.9 mg/dL (8.5-10.1); CARBON DIOXIDE 30.3 mmol/L (21.0-32.0); MAGNESIUM - SERUM 1.9 mg/dL (1.8-2.4); PHOSPHOROUS 7.6 mg/dL (2.5-4.9); POTASSIUM - SERUM 4.7 mmol/L (3.5-5.1)
[2020-03-24 05:24] LABS: CREATININE - SERUM 2.5 mg/dL (0.6-1.3)
--- NOTE | 2020-03-24 07:20 | NUR ---
Pt appears asleep. Arouses to voice. On 2.5L O2 via nc. Denies chest pain. BP 93/42. Normal Saline bolus infusing at this time per order. PIV to left hand. Pitting edema noted to Bilateral LE 2+. Oral temp 99.1. Hr 90s A-Fib controlled. Safety measures in place. Will continue to monitor.
[2020-03-24 08:17] LABS: BILIRUBIN NEGATIVE (NEGATIVE); KETONE NEGATIVE (NEGATIVE); NITRITE NEGATIVE (NEGATIVE); UROBILINOGEN NORMAL (NORMAL)
[2020-03-24 08:20] LABS: EPITHELIAL CELLS RARE /hpf (0-5); RED CELLS - URINE RARE /hpf (0-5); WHITE CELLS - URINE 25-50 /hpf (NEGATIVE)
[2020-03-24 08:25] LABS: BACTERIA FEW /hpf (NEGATIVE)
[2020-03-24 08:26] LABS: HYALINE CAST RARE /lpf (NONE SEEN)
--- NOTE | 2020-03-24 08:40 | NUR ---
Veronica Lin with cardioloby at bedside. Discontinued bumex. Continue diltiazem. Added NS at 100ml/hr. Hold all BP meds at this time.
--- NOTE | 2020-03-24 10:36 | NUR ---
BLADDERED SCANNED PER DR. KRISHNAN'S ORDER. SHOWED 41ML OF URINE IN BLADDER.
--- NOTE | 2020-03-24 13:03 | NUR ---
Call received from sirisha, passcode verified. Update given. Visitation times given.
--- NOTE | 2020-03-24 14:35 | NUR ---
Son at bedside. Update given. Pt resting comfortably. Will continue to monitor.
--- NOTE | 2020-03-24 15:07 | NUR ---
Stephens catheter inserted per orders. Noted 30ml of urine at this time. No further needs. Will continue to monitor.
--- NOTE | 2020-03-24 18:00 | NUR ---
Spoke with Dr. Zepeda. Ordered Levophed drip for low BP. Maintain MAP 60-65. Aware that pt only put out 30ml urine. Will continue to monitor.
[2020-03-24 18:12] LABS: ANION GAP 11.3 mmol/L (8-16); BILIRUBIN - TOTAL 0.97 mg/dL (0.2-1.3); CARBON DIOXIDE 30.5 mmol/L (21.0-32.0); POTASSIUM - SERUM 4.8 mmol/L (3.5-5.1); PROTEIN - SERUM 6.5 g/dL (6.4-8.2)
[2020-03-24 18:15] LABS: ALBUMIN 3.2 g/dL (3.4-5.0); CREATININE - SERUM 3.4 mg/dL (0.6-1.3)
--- NOTE | 2020-03-24 19:36 | NUR ---
22G PIV inserted LFA x 1 attempt. Levophed initiated per orders.
--- NOTE | 2020-03-24 19:46 | NUR ---
EULOGIO PROVIDED WITH PT UPDATE, ORDERS GIVEN FOR PT TO BE INPATIENT ICU- DO NOT TRANSFER PT AT THIS TIME.
--- NOTE | 2020-03-24 21:55 | NUR ---
OT NOTE: PT LETHARGIC. PT REQUIRED MAX A X2 FOR SUPINE TO SIT. PT COMPLETED EOB SITTING WITH MIN/MOD A. PT UE AROM WITH FUNCTIONAL TASKS. 120-144 THANK YOU,LETICIA MENDES
--- NOTE | 2020-03-24 23:39 | NUR ---
EULOGIO PROVIDED WITH UPDATE- ORDERS FOR 0300 LAB, AND LEVOPHED GTT TO INFUSE AT 7 MCG/MIN.
[2020-03-25] VITALS (92 sets, daily range): BP systolic 82–153; BP diastolic 33–103; Ht 170.2 cm; Wt 107.7 kg
--- NOTE | 2020-03-25 00:40 | NUR ---
PT SON PROVIDED WITH UPDATE AT THIS TIME, QUESTIONS ANSWERED.
--- NOTE | 2020-03-25 01:40 | NUR ---
L FOREARM PIV WITH REDNESS, SWELLING, AND TENDERNESS- LEVOPHED INFUSING. IV D/C'D. EULOGIO UPDATED, ORDERS TO STOP NS AND CONTINUE TO INFUSE ONLY AMIODARONE AND LEVOPHED AT THIS TIME VIA L HAND PIV WITH 3 PORT EXTENSION SET.
[2020-03-25 03:42] LABS: BASOPHILS 0.2 % (0-2); EOSINOPHILS 1.6 % (0-7); HEMATOCRIT 31.6 % (42.0-54.0); IMMATURE GRANULOCYTES 0.6 % (0-5); LYMPHOCYTES 13.3 % (15-50); MCH 29.6 pg (26.0-34.0); MCHC 31.6 g/dL (31.0-37.0); MCV 93.5 fL (80.0-100.0); MEAN PLATELET VOLUME 10.4 fL (7.4-10.4); MONOCYTES 5.5 % (2-11); NEUTROPHILS 78.8 % (40-80); RBC 3.38 10x6/uL (4.20-6.10); WBC 9.9 10x3/uL (4.8-10.8)
[2020-03-25 03:45] LABS: PLATELET COUNT 139 10x3/uL (130-400)
[2020-03-25 04:07] LABS: ANION GAP 8.2 mmol/L (8-16); BILIRUBIN - TOTAL 0.96 mg/dL (0.2-1.3); CALCIUM 8.1 mg/dL (8.5-10.1); CARBON DIOXIDE 32.9 mmol/L (21.0-32.0); MAGNESIUM - SERUM 2.1 mg/dL (1.8-2.4); PHOSPHOROUS 7.9 mg/dL (2.5-4.9); POTASSIUM - SERUM 5.1 mmol/L (3.5-5.1); PROTEIN - SERUM 6.6 g/dL (6.4-8.2)
--- NOTE | 2020-03-25 07:35 | NUR ---
DR KRISHNAN AT THE PTS BEDSIDE. SHE SPOKE WITH THE SON VIA TELEPHONE ABOUT NEEDED A TRIALYSIS CATHETER. DR CORNEJO PAGED ABOUT CONSULT FOR TRIALYSIS PLACEMENT.
--- NOTE | 2020-03-25 07:38 | NUR ---
DR CORNEJO PAGED BACK AND IS AWARE OF CONSULT.
--- NOTE | 2020-03-25 07:40 | NUR ---
ATTEMPTED X2 TO CALL [facility] RT CONSENT FOR TRIALYSIS. NO ANSWER. WILL TRY AGAIN LATER.
--- NOTE | 2020-03-25 08:25 | NUR ---
SPOKE WITH AIDA PATTERSON. HE GIVEN CONSENT FOR TRIALYSIS CATHETER. WITTNESSED BY [facility] RESENDIZ.
--- NOTE | 2020-03-25 09:11 | NUR ---
HOLDING PO MEDS UNTILL DR CORNEJO PLACES TRIALYSIS. HE STATED HE SHOULD BE BY THIS AM.
--- NOTE | 2020-03-25 09:33 | NUR ---
PHYSCIAL THEARPY ASSISTED THE PT TO THE SIDE OF THE BED AND THEN BACK INTO BED. PT REMAINS CONFUSED. VSS. WILLC ONT POC.
--- NOTE | 2020-03-25 11:30 | NUR ---
DR CORNEJO AT THE PTS BEDSIDE. DR CORNEJO PLACED A TRIALYSIS CATHETER IN HIS RIGHT IJ. CXR ORDERED. SON AT THE PTS BEDSIDE.
--- NOTE | 2020-03-25 14:36 | NUR ---
DIALYSIS NURSE AT THE PTS BEDSIDE.
[2020-03-26] VITALS (48 sets, daily range): BP systolic 101–173; BP diastolic 42–137
[2020-03-26 05:14] LABS: BASOPHILS 0.2 % (0-2); HEMATOCRIT 31.4 % (42.0-54.0); HEMOGLOBIN 10.2 g/dL (13.5-17.5); IMMATURE GRANULOCYTES 0.5 % (0-5); LYMPHOCYTES 11.7 % (15-50); MCH 29.1 pg (26.0-34.0); MCHC 32.5 g/dL (31.0-37.0); MEAN PLATELET VOLUME 10.4 fL (7.4-10.4); MONOCYTES 9.7 % (2-11); NEUTROPHILS 76.9 % (40-80); PLATELET COUNT 147 10x3/uL (130-400); RDW 14.7 % (11.5-14.5); WBC 10.5 10x3/uL (4.8-10.8)
[2020-03-26 05:43] LABS: MCV 89.7 fL (80.0-100.0)
[2020-03-26 05:59] LABS: ALBUMIN 2.6 g/dL (3.4-5.0); ANION GAP 12.1 mmol/L (8-16); BILIRUBIN - TOTAL 0.71 mg/dL (0.2-1.3); CALCIUM 8.2 mg/dL (8.5-10.1); CARBON DIOXIDE 29.7 mmol/L (21.0-32.0); MAGNESIUM - SERUM 1.8 mg/dL (1.8-2.4); PROTEIN - SERUM 6.5 g/dL (6.4-8.2)
[2020-03-26 06:06] LABS: CREATININE - SERUM 2.8 mg/dL (0.6-1.3); PHOSPHOROUS 4.3 mg/dL (2.5-4.9); POTASSIUM - SERUM 3.8 mmol/L (3.5-5.1)
--- NOTE | 2020-03-26 08:19 | EC ---
PATIENT:SANDRA OLVERA DATE OF SERVICE: 03/22/20 SEX: M MEDICAL RECORD: [id number] DATE OF : 42 LOCATION:[place] [address] AGE OF PATIENT: 79 ADMISSION DATE: 03/22/20 REFERRING PHYSICIAN: INTERPRETING PHYSICIAN: JUSTIN PEDERSON MD ECHOCARDIOGRAM REPORT ECHO CHARGES 4 ECHO COMPLETE Date: 03/23/20 CLINICAL DIAGNOSIS: BLE EDEMA, NEW ONSET AFIB, HTN, CP ECHOCARDIOGRAPHIC MEASUREMENTS (adult normal given) AC root (d.<3.7cm) 2.9 cm LV Septum d (<1.2 cm> 0.7 cm Valve Excursion 1.1 cm LV Septum (systole) 1.4 cm Left Atria (s.<4.0cm> 4.0 cm LVPW d(<1.2cm) 1.2 cm RV (d.<2.3cm) 2.8 cm LVPW (sytole) 1.5 cm LV diastole(<5.6CM) 6.0 cm MV E-F(>70mm/sec) cm LV systole 3.8 cm LVOT Diameter 1.7 cm MV exc.(>10mm) cm Est.ejection fraction (50-75%) % DOPPLER: LVIT cm/sec A 26 cm/sec E 102 cm/sec LA cm/sec RVSP 39.1 mmHg LVOT 105 cm/sec AOP1/2T m/s Asc. Ao 141 cm/sec RVOT 69 cm/sec RA cm/sec PA 98 cm/sec AV Gradient Peak 8.0 mmHg AV Mean 5.1 mmHg AV Area 2.1 cm MV Gradient Peak 6.5 mmHg MV Mean 2.7 mmHg MV Area cm COMMENTS: Leadite Man: Liliana MARKHAM Sorter Packer: 3 Dr. Damon TAPE# PACS Pericardial Effusion N DATE OF SERVICE: Adequate 2D, color-flow imaging, spectral Doppler, and M-Mode. No LVH. LV internal dimension is normal. Wall motion is normal. EF is greater than or equal to 55%. Aortic valve is tricuspid. No evidence of stenosis by Doppler interrogation. Left atrium is normal. Mitral valve shows no prolapse. Trace MR. Right-sided chambers are grossly normal. Trace TR. TRANSINT:[id number] Voice Confirmation ID: [id number] DOCUMENT ID: [id number] ECHOCARDIOGRAM REPORT [id number] SANDRA OLVERA,JUSTIN Francis MD at 0819 CC: [id number] DICTATION DATE: 03/23/20 1444 CAR KNOCKER: 03/23/20 2306 ADM IN [place] [id number] [place] [id number]
--- NOTE | 2020-03-26 13:44 | NUR ---
NUTRITION FOLLOW UP: COMMENTS: Patient asleep during visit this am. Patient has been experiencing a poor PO intake. No BM recorded since admit. DIET: Renal ADA PO INTAKE: 11% avg for last 3 meals WEIGHT: 231.7 lbs on 03/25 BM: None recorded at this time SIG LABS: Na-313(L), Cl-2.1(H), POC Glucose- 170, 212, 185, 178 SIG MEDS: Lasix, Miralax, Humalog RECOMMENDATIONS: -Continue Renal ADA diet as tolerated -Offer Nepro with meals if po intake continues < 50% avg for meals -Encourage po intake -Feeding assist if needed
--- NOTE | 2020-03-26 17:39 | NUR ---
1200-AWAKE AND ALERT FEEDING SELF-REMOVED BRACE FROM R WRIST SELF-THREW BRACE OUT OF DOOR-REFUSING TO HAVE ON -ARM ELEVATED ON PILLOW- 1400-PT ASLEEP RESTING COMFORTABLY-AFIB ON MONITOR 1630-AWAKE AND ALERT -SITTING UP FOR DINNER TRAY
--- NOTE | 2020-03-26 19:40 | NUR ---
REC'D PT ON O2 @ 2LITERS VIA NC, AWAKE AND ALERT TO PERSON ONLY, REORIENTS EASILY TO PLACE, STATES "OH THATS RIGHT", RIJ TRIALYSIS CATHETER DRSG CDI WITH NEXTERONE @ 16.7CC/HR OR 0.5MG/MIN, CM-UCAF @ 112, RIGHT ARM ELEVATED ON PILLOW, LIMP AT WRIST, WEAKNESS NOTED, PREVIOUS SURGICAL SCAR TO RIGHT UPPER ARM, LEFT HAND PIV WITH DRIED BLOOD UNDERDRSG, PT REPORTS THAT IT IS SORE, DC'D WITH CATH TIP INTACT AND HAND CLEANED, ZAMORA PATENT DRAINING CONCENTRATED URINE, PT DENIES PAIN OR NEEDS, CALL LIGHT IN REACH, BED IN LOW POSITION.
--- NOTE | 2020-03-26 20:05 | NUR ---
PT'S SON AIDA AT BS, UPDATE GIVEN AND QUESTIONS ANSWERED.
--- NOTE | 2020-03-26 21:20 | NUR ---
PT COMPLAINS OF RIGHT ARM AND WRIST HURTING, RATING PAIN "7" ON 0-10 PAIN SCALE, PERCOCET GIVEN PO FOR PAIN, BP STABLE, WILL CONT TO MONITOR FOR CHANGES.
[2020-03-27] VITALS (21 sets, daily range): BP systolic 133–183; BP diastolic 62–107
[2020-03-27 06:25] LABS: BASOPHILS 0.1 % (0-2); EOSINOPHILS 3.3 % (0-7); HEMATOCRIT 29.8 % (42.0-54.0); HEMOGLOBIN 9.5 g/dL (13.5-17.5); IMMATURE GRANULOCYTES 0.7 % (0-5); LYMPHOCYTES 15.6 % (15-50); MCH 28.8 pg (26.0-34.0); MCHC 31.9 g/dL (31.0-37.0); MCV 90.3 fL (80.0-100.0); MEAN PLATELET VOLUME 10.6 fL (7.4-10.4); NEUTROPHILS 72.3 % (40-80); PLATELET COUNT 131 10x3/uL (130-400); RDW 14.7 % (11.5-14.5); WBC 7.5 10x3/uL (4.8-10.8)
[2020-03-27 09:58] LABS: ALBUMIN 2.9 g/dL (3.4-5.0); ANION GAP 10.1 mmol/L (8-16); BILIRUBIN - TOTAL 0.54 mg/dL (0.2-1.3); CALCIUM 8.3 mg/dL (8.5-10.1); CARBON DIOXIDE 28.4 mmol/L (21.0-32.0); CREATININE - SERUM 2.3 mg/dL (0.6-1.3); MAGNESIUM - SERUM 1.8 mg/dL (1.8-2.4); PHOSPHOROUS 4.9 mg/dL (2.5-4.9); POTASSIUM - SERUM 3.5 mmol/L (3.5-5.1); PROTEIN - SERUM 6.4 g/dL (6.4-8.2)
--- NOTE | 2020-03-27 19:40 | NUR ---
REPORT REC'D AND CARE ASSUMED, REC'D PT RESTING IN BED ON O2 @ 2LITERS, AWAKE, ALERT, AND ORIENTED X 4, PT HAS OLD SCAR TO UPPER ARM FROM PREVIOUS FRACTURE, RIGHT WRIST IS LIMP WITH NO SUPPORT, PT CURRENTLY HAS WRIST ELEVATED ON PILLOW FROM HOME, RIJ TRIALYSIS WITH LEIGH ANNG CDI NS @ 10CC/HR AND NEXTERONE @ 16.7CC/HR, EDEMA TO LOWER EXT'S HAS IMPROVED FROM YESTERDAY, PITTING EDEMA IS NO LONGER THERE, PT REQUESTING ICE WATER, PROVIDED AT THIS TIME, PT DENIES PAIN OR OTHER NEEDS, BED IN LOW POSITION, CALL LIGHT IN REACH.
--- NOTE | 2020-03-27 19:45 | NUR ---
SON AT BS, UPDATE PROVIDED AND QUESTIONS ANSWERED.
--- NOTE | 2020-03-27 21:15 | NUR ---
EVENING MEDS GIVEN, PT COMPLAINS OF RIGHT WRIST HURTING, PERCOCET PROVIDED FOR COMPLAINTS OF PAIN "9" ON 0-10 SCALE, DENIES FURTHER NEEDS, WILL MONITOR CLOSELY FOR CHANGES.
[2020-03-28] VITALS (15 sets, daily range): BP systolic 120–169; BP diastolic 58–78
[2020-03-28 05:16] LABS: ALBUMIN 3.2 g/dL (3.4-5.0); BILIRUBIN - TOTAL 0.61 mg/dL (0.2-1.3); CALCIUM 8.5 mg/dL (8.5-10.1); CARBON DIOXIDE 33.5 mmol/L (21.0-32.0); MAGNESIUM - SERUM 1.8 mg/dL (1.8-2.4); POTASSIUM - SERUM 3.5 mmol/L (3.5-5.1); PROTEIN - SERUM 6.6 g/dL (6.4-8.2)
[2020-03-28 06:43] LABS: BILIRUBIN NEGATIVE (NEGATIVE); KETONE NEGATIVE (NEGATIVE); NITRITE NEGATIVE (NEGATIVE); UROBILINOGEN NORMAL (NORMAL)
[2020-03-28 06:49] LABS: RED CELLS - URINE >50 /hpf (0-5)
[2020-03-28 06:50] LABS: BACTERIA MODERATE /hpf (NEGATIVE); EPITHELIAL CELLS NSEEN /hpf (0-5)
--- NOTE | 2020-03-28 08:44 | NUR ---
0750-REMOVED L BP CUFF-NOTED SKIN TO L AC /ELBOW AREA-SET NIBP FOR Q2H-PT ALERT CALM AND C/O OF STRONG DISCOMFORT OF BP CUFF
--- NOTE | 2020-03-28 10:30 | NUR ---
DR BRIONES AND ALEKSANDER AT BEDSIDE -REVIEWED PT HOME MED LIST
[2020-03-28 10:57] LABS: BASOPHILS 0.1 % (0-2); EOSINOPHILS 4.3 % (0-7); HEMATOCRIT 30.4 % (42.0-54.0); IMMATURE GRANULOCYTES 0.7 % (0-5); LYMPHOCYTES 16.3 % (15-50); MCHC 32.9 g/dL (31.0-37.0); MCV 91.3 fL (80.0-100.0); MEAN PLATELET VOLUME 11.2 fL (7.4-10.4); MONOCYTES 9.6 % (2-11); PLATELET COUNT 151 10x3/uL (130-400); RBC 3.33 10x6/uL (4.20-6.10); RDW 14.4 % (11.5-14.5); WBC 7.3 10x3/uL (4.8-10.8)
[2020-03-29] VITALS (24 sets, daily range): BP systolic 106–169; BP diastolic 51–90
[2020-03-29 06:27] LABS: BASOPHILS 0.2 % (0-2); HEMATOCRIT 28.7 % (42.0-54.0); HEMOGLOBIN 9.4 g/dL (13.5-17.5); IMMATURE GRANULOCYTES 0.9 % (0-5); LYMPHOCYTES 12.4 % (15-50); MCH 29.6 pg (26.0-34.0); MCHC 32.8 g/dL (31.0-37.0); MCV 90.3 fL (80.0-100.0); MEAN PLATELET VOLUME 10.6 fL (7.4-10.4); MONOCYTES 11.8 % (2-11); NEUTROPHILS 71.7 % (40-80); PLATELET COUNT 141 10x3/uL (130-400); RBC 3.18 10x6/uL (4.20-6.10); RDW 14.3 % (11.5-14.5); WBC 6.4 10x3/uL (4.8-10.8)
[2020-03-29 07:08] LABS: ALBUMIN 3.2 g/dL (3.4-5.0); ANION GAP 8.8 mmol/L (8-16); BILIRUBIN - TOTAL 0.62 mg/dL (0.2-1.3); CALCIUM 8.2 mg/dL (8.5-10.1); CARBON DIOXIDE 30.9 mmol/L (21.0-32.0); POTASSIUM - SERUM 3.7 mmol/L (3.5-5.1); PROTEIN - SERUM 6.4 g/dL (6.4-8.2)
--- NOTE | 2020-03-29 07:48 | NUR ---
DR BRIONES ORDERED A 1.2L FLUID RESTRICTION DIET.
--- NOTE | 2020-03-29 10:46 | NUR ---
Nutrition Follow-up: Pt in droplet isolation. Nursing reports pt eating ok. HD tx on 03/28. +1.[address] restriction [address] Zepeda. Diet: Renal ADA PO intake: 58% avg x 9 meals Wt: 237# (03/28) Labs noted: Na 125, Glu 143, Ca 8.2, Alb 3.2 Meds noted: Lasix, KDur, Humalog, electrolyte protocol -Encourage PO intake and honor food preferences within diet restrictions. -Monitor wt. -RD following.
--- NOTE | 2020-03-29 12:56 | NUR ---
REPORT RECEIVED FROM MARTÍN PARTIDA AND CARE TAKEN OVER PATIENT.
[2020-03-29 13:13] LABS: ANION GAP 6.5 mmol/L (8-16); CALCIUM 8.4 mg/dL (8.5-10.1); CARBON DIOXIDE 31.5 mmol/L (21.0-32.0); CREATININE - SERUM 2.1 mg/dL (0.6-1.3)
--- NOTE | 2020-03-29 14:20 | NUR ---
SPOKE WITH DR. KRISHNAN ABOUT SODIUM LEVEL. NEW ORDERS RECEIVED AT THIS TIME.
[2020-03-30] VITALS (19 sets, daily range): BP systolic 121–166; BP diastolic 54–92
[2020-03-30 04:22] LABS: BASOPHILS 0.3 % (0-2); HEMATOCRIT 30.8 % (42.0-54.0); HEMOGLOBIN 10.1 g/dL (13.5-17.5); IMMATURE GRANULOCYTES 0.8 % (0-5); LYMPHOCYTES 27.9 % (15-50); MCH 29.3 pg (26.0-34.0); MCHC 32.8 g/dL (31.0-37.0); MCV 89.3 fL (80.0-100.0); MEAN PLATELET VOLUME 10.5 fL (7.4-10.4); MONOCYTES 10.5 % (2-11); NEUTROPHILS 57.5 % (40-80); RBC 3.45 10x6/uL (4.20-6.10)
[2020-03-30 04:23] LABS: PLATELET COUNT 172 10x3/uL (130-400); WBC 8.6 10x3/uL (4.8-10.8)
[2020-03-30 04:29] LABS: ALBUMIN 3.1 g/dL (3.4-5.0); ANION GAP 2.9 mmol/L (8-16); BILIRUBIN - TOTAL 0.69 mg/dL (0.2-1.3); CALCIUM 8.5 mg/dL (8.5-10.1); CARBON DIOXIDE 34.1 mmol/L (21.0-32.0); CREATININE - SERUM 2.2 mg/dL (0.6-1.3); MAGNESIUM - SERUM 1.8 mg/dL (1.8-2.4); PROTEIN - SERUM 6.4 g/dL (6.4-8.2)
--- NOTE | 2020-03-30 06:00 | NUR ---
PT REQUEST TO REST A LITTLE BIT LONGER BEFORE GETTING UP THIS MORNING, PT WAS AWAKE MOST OF THE NIGHT. PT AWAKE AND ALERT, SPOKE WITH DR KRISHNAN AND REC'D ORDERS CONCERNING PTS SODIUM LEVEL. WILL HOLD LASIX TODAY. CALL LIGHT WITHIN REACH, WILL CONTINUE TO OBSERVE.
--- NOTE | 2020-03-30 07:00 | NUR ---
RECEIVED BEDSIDE REPORT AND ASSUMED CARE OF PATIENT. PATIENT AWAKE AND ALERT X 4, VSS, SITTING UP IN BED, WATCHING TV. NO NEEDS AT THIS TIME. BBS - CLEAR AND EQUAL, DIMINISHED IN THE BASES. SPO2 - 96% ON 1 LPM VIA NC. CM - SR. IV NSL WITH NO S/S IF INFILTRATION. ZAMORA CATH IN PLACE WITH 135 ML OF CLEAR CRISSY UOP NOTED. HEAD TO TOE ASSESSMENT COMPLETED.
--- NOTE | 2020-03-30 07:50 | NUR ---
PATIENT GIVEN BREAKFAST TRAY. NO NEEDS AT THIS TIME. VSS.
--- NOTE | 2020-03-30 09:15 | NUR ---
PATIENT WATCHING TV, VSS. NO NEEDS AT THIS TIME. MORNING MEDS GIVEN PER MAR.
--- NOTE | 2020-03-30 10:45 | NUR ---
PATIENT UP TO BEDSIDE CHAIR WITH ASSIST AND WALKER WITH PHYSICAL THERAPY. TOLERATED WELL VSS. DRESSING TO LEFT ELBOW CHANGED.
--- NOTE | 2020-03-30 11:00 | NUR ---
REASSESSMENT COMPLETED. C/O NAUSEA PRN ZOFRAN WITH NS FLUSH GIVEN. VSS.
--- NOTE | 2020-03-30 12:01 | NUR ---
DR. EDWARDS AT ROOM UPDATED AND EXAMINES PATIENT. OK TO MOVE TO FLOOR. PATIENT GIVEN LUNCH TRAY. VSS.
--- NOTE | 2020-03-30 15:00 | NUR ---
PATIENT WITH NO NEEDS, DRESSING TO TRIALYSIS CATH CHANGED. VSS.
--- NOTE | 2020-03-30 15:30 | NUR ---
Rehab Note- Acute Inpatient Rehab prescreen order received. The patient has +MRSA in his sputum, and noted ground glass in his chest xray- requesting a Covid test at this time due to the patient would continue in droplet isolation but would be in a gym participating in therapy in acute inpatient rehab. Spoke with SHABBIR Long to request a Covid test prior to an inpatient acute rehab stay. Will follow at this time. Thank you for this referral! Meghan Haji RN Clinical Liaison, [facility] Rehab
--- NOTE | 2020-03-30 16:01 | NUR ---
REPORT GIVEN TO HENRY RESENDIZ. TRANSFER PATIENT TO ROOM 2103.
--- NOTE | 2020-03-30 16:58 | NUR ---
1640 PATIENT ARRIVED TO UNIT VIA BED AND ADMITTED TO ROOM 2106. PATIENT ALERT/ORIENTED. RESP EVEN AND UNLABORED. RIGHT JUGULAR TRIALYSIS. PATIENT WITH RECENT FX TO RIGHT UPPER ARM, S/P SURGICAL REPAIR. CALL LIGHT WITHIN REACH. NO DISTRESS. AWAITING PM MEAL AT THIS TIME.
--- NOTE | 2020-03-30 17:12 | NUR ---
medicated for nausea at this time. no distress.
--- NOTE | 2020-03-30 17:20 | NUR ---
telemetry applied. no distress. call light within reach.
--- NOTE | 2020-03-30 19:22 | MORECARE ---
CASE MANAGEMENT DISCHARGE SUMMARY PATIENT: SANDRA OLVERA UNIT: [id number] ADM DATE: 03/22/20 AGE: 79 : 41 SEX: M ROOM/BED: D.2107 AUTHOR: MIKA NAYLOR PHYSICIAN: REFERRING PHYSICIAN: DG COHEN MD DATE OF SERVICE: 03/30/20 Discharge Plan Patient Name: SANDRA OLVERA [facility] [facility] 1940 Planned Disposition: Anticipated Discharge Date: Discharge Date: Expected LOS: Initial Reviewer: [email or web address] Initial Review Date: 03/22/2020 Generated: 03/30/20 8:22 pm Patient Name: SANDRA OLVERA Page 02050 at 1921 All edits/amendments must be made on the electronic document DICTATION DATE: 03/30/201921 BAIT MAKER: DARI 03/30/201921 RPT#: [id number] DC DATE: STATUS: ADM IN [facility] [address] [place] [address] END OF REPORT
--- NOTE | 2020-03-30 19:29 | MORECARE ---
CASE MANAGEMENT DISCHARGE SUMMARY PATIENT: SANDRA OLVERA UNIT: [id number] ADM DATE: 03/22/20 AGE: 79 : 41 SEX: M ROOM/BED: D.2107 AUTHOR: MIKA NAYLOR PHYSICIAN: REFERRING PHYSICIAN: DG COHEN MD DATE OF SERVICE: 03/30/20 Discharge Plan Patient Name: SANDRA OLVERA [facility] [facility] 1940 Planned Disposition: Anticipated Discharge Date: Discharge Date: Expected LOS: Initial Reviewer: [email or web address] Initial Review Date: 03/22/2020 Generated: 03/30/20 8:29 pm DCPIA - Discharge Planning Initial Assessment Updated by [email or web address]: Mercedes Temple on 03/30/20 7:27 pm * Is the patient Alert and Oriented? Yes * How many steps to enter\exit or inside your home? * PCP [facility] * Pharmacy [facility] * Preadmission Environment Home with Family * ADLs Independent * Other Equipment HOME/ PORTABLE 02, NEB, WALKER, W/C * Community resources currently utilized Home Health * Please name any agencies selected above. [facility] - (? CURRENT) * Additional services required to return to the preadmission environment? No * Can the patient safely return to the preadmission environment? Yes * Has this patient been hospitalized within the prior 30 days at any hospital? No Last DP export: 03/30/20 6:22 p Patient Name: SANDRA OLVERA Page 71023 at 1929 All edits/amendments must be made on the electronic document DICTATION DATE: 03/30/201928 CAMERA ENGINEER: DARI 03/30/201928 RPT#: [id number] DC DATE: STATUS: ADM IN [facility] [address] [place] [address] END OF REPORT
--- NOTE | 2020-03-30 19:37 | MORECARE ---
CASE MANAGEMENT DISCHARGE SUMMARY PATIENT: SANDRA OLVERA UNIT: [id number] ADM DATE: 03/22/20 AGE: 79 : 41 SEX: M ROOM/BED: D.4841 AUTHOR: DAYDAY,DOC PHYSICIAN: REFERRING PHYSICIAN: DG COHEN MD DATE OF SERVICE: 03/30/20 Discharge Plan Patient Name: SANDRA OLVERA Facility: [facility]:[place] : 1940 Planned Disposition: Anticipated Discharge Date: Discharge Date: Expected LOS: Initial Reviewer: [email or web address] Initial Review Date: 03/22/2020 Generated: 03/30/20 8:37 pm Comments DCP- Discharge Planning Updated by [email or web address]: Mercedes Temple on 03/30/20 6:[address] Patient Name: SANDRA OLVERA Admission Status: ER Accout number: [id number] Admission Date: 03-22-2020 : 1940 Admission Diagnosis:HYPERTENSIVE HEART DISEASE WITH HEART FAILURE Attending: DG ARMIJO Current LOS: 8 Anticipated DC Date: Planned Disposition: Primary Insurance: MEDICARE A & B CM met with patient to complete initial dc planning assessment. CM educated patient on the CM role and verbal consent given by patient to complete assessment. Patient lives at home with family. Patient is independent mostly. At discharge patient plans to return home and feels this is a safe discharge. CM discussed availability of home health, rehab services, and medical equipment. Patient states that he has home / portable 02 but doesn't know provider. Patient also states that he has Home Health for therapy on his shoulder but he doesn't know with whom. Per old records he had [facility] in the past. CM spoke to patient regarding inpatient rehab. Patient states he will talk to his son about rehab. CM expressed that therapist recommended rehab prior to going home. Patient will have family to transport home. Patient denied known discharge needs at this time. CM will continue to follow and will assist as needed with dc plans/needs. Discharge Planning Comments: Gas Meter Installer: Mercedes Temple DCPIA - Discharge Planning Initial Assessment Updated by [id number]: Mercedes Temple on 03/30/20 7:27 pm * Is the patient Alert and Oriented? Yes * How many steps to enter\exit or inside your home? * PCP PRE[facility] * Pharmacy [facility] * Preadmission Environment Home with Family * ADLs Independent * Other Equipment HOME/ PORTABLE [place], [place]RIE, LATANYA, W/C * Community resources currently utilized Home Health * Please name any agencies selected above. [facility] - (? CURRENT) * Additional services required to return to the preadmission environment? No * Can the patient safely return to the preadmission environment? Yes * Has this patient been hospitalized within the prior 30 days at any hospital? No Last DP export: 03/30/20 6:29 p Patient Name: SANDRA OLVERA Page 12189 at 1937 All edits/amendments must be made on the electronic document DICTATION DATE: 03/30/201936 TRANSMISSION LINE ENGINEER: DARI 03/30/201936 RPT#: [id number] DC DATE: STATUS: ADM IN [facility] [address] [place] [address] END OF REPORT
[2020-03-31 04:00] VITALS: BP 122/44
[2020-03-31 06:57] LABS: BASOPHILS 0.1 % (0-2); EOSINOPHILS 2.7 % (0-7); HEMATOCRIT 29.1 % (42.0-54.0); HEMOGLOBIN 9.7 g/dL (13.5-17.5); LYMPHOCYTES 17.2 % (15-50); MCH 29.8 pg (26.0-34.0); MCHC 33.3 g/dL (31.0-37.0); MCV 89.3 fL (80.0-100.0); MEAN PLATELET VOLUME 10.7 fL (7.4-10.4); MONOCYTES 11.2 % (2-11); NEUTROPHILS 67.8 % (40-80); PLATELET COUNT 183 10x3/uL (130-400); RBC 3.26 10x6/uL (4.20-6.10); RDW 14.1 % (11.5-14.5)
[2020-03-31 09:06] LABS: ANION GAP 10.9 mmol/L (8-16); CALCIUM 8.8 mg/dL (8.5-10.1); CARBON DIOXIDE 27.1 mmol/L (21.0-32.0); CREATININE - SERUM 2.2 mg/dL (0.6-1.3)
--- NOTE | 2020-03-31 10:19 | NUR ---
CALLED RONA IN PHARMACY FOR LANTUS INSULIN PEN AND SHE VERBALIZED UDNERSTANDING AND STATES SHE WILL GET IT. I VERBALIZED UDNERSTANDING.
--- NOTE | 2020-03-31 10:24 | NUR ---
right ij trialysis dressing changed using sterile technique.
[2020-03-31 10:50] VITALS: BP 152/64
--- NOTE | 2020-03-31 12:35 | NUR ---
I have reviewed this patient and I concur with the Shift Assessment completed by the Licensed Practical Nurse today this shift.
--- NOTE | 2020-03-31 12:37 | NUR ---
COVID PLACEMENT TEST NEGATIVE.
[2020-03-31 14:57] VITALS: BP 99/62
--- NOTE | 2020-03-31 15:58 | NUR ---
OT NOTE: ATTEMPTED TO SEE PT IN AM, HOWEVER, HE WAS VERY LETHARGIC..NURSING INFORMED BUT SHE HAD NOT HAD THIS PT UNTIL TODAY SO WAS NOT FAMILIAR WITH HIS PREVIOUS FUNCTION. HOWEVER, IN PM, PT WAS VERY ALERT. VERY MOTIVATED. BED MOB WITH MIN ASSIST; SIT TO STAND WITH MIN ASSIST. STANDING BALANCE FAIR+ WITH UE SUPPORT. STANDING TOLERANCE X APPROX 4-5 MIN WITHOUT SOB. TOILETING WITH ASSIST. ABLE TO WASH HANDS WITH WASH CLOTH AND SET UP.. CONT TO HAVE PAIN AND DECREASED MOVEMENT IN R UE. KEESHA SWEET, OTR/L [phone]
--- NOTE | 2020-03-31 19:45 | NUR ---
REPORT RECEIVED AND ROUNDING COMPLETE. PATIENT LAYING IN BED IN LOW FOWLERS POSITION. PATIENT WEARING NASAL CANNULA WITH O2 AT 2L. PATIENT IS IN ISO FOR MRSA. PATIENT HAS A ZAMORA CATH FOR RETENTION, THERE IS SCANT AMOUNT OF CLEAR URINE IN ZAMORA BAG. PATIENT HAS A DRESSING TO HIS LEFT ELBOW. RIGHT IJ WITH CLEAN DRESSING THAT WAS CHANGED TODAY [facility] DAY NURSE, NO NEEDS VOICED AT THIS TIME NO DISTRESS NOTED. CALL LIGHT WIHTIN REACH. BED IN LOWEST LOCKED POSITION.
[2020-03-31 19:47] VITALS: BP 138/67
[2020-04-01] VITALS: BP 125/61
[2020-04-01 04:00] VITALS: BP 132/67
[2020-04-01 05:41] LABS: BASOPHILS 0.1 % (0-2); EOSINOPHILS 3.3 % (0-7); HEMATOCRIT 30.4 % (42.0-54.0); HEMOGLOBIN 9.8 g/dL (13.5-17.5); LYMPHOCYTES 19.3 % (15-50); MCH 29.3 pg (26.0-34.0); MCHC 32.2 g/dL (31.0-37.0); MCV 90.7 fL (80.0-100.0); MEAN PLATELET VOLUME 10.4 fL (7.4-10.4); MONOCYTES 9.7 % (2-11); NEUTROPHILS 66.6 % (40-80); PLATELET COUNT 189 10x3/uL (130-400); RBC 3.35 10x6/uL (4.20-6.10); RDW 14.4 % (11.5-14.5); WBC 6.7 10x3/uL (4.8-10.8)
[2020-04-01 06:00] LABS: ANION GAP 6.9 mmol/L (8-16); CALCIUM 8.8 mg/dL (8.5-10.1); CARBON DIOXIDE 32.1 mmol/L (21.0-32.0); CREATININE - SERUM 2.1 mg/dL (0.6-1.3); MAGNESIUM - SERUM 1.7 mg/dL (1.8-2.4); PHOSPHOROUS 5.2 mg/dL (2.5-4.9)
--- NOTE | 2020-04-01 09:30 | MORECARE ---
CASE MANAGEMENT DISCHARGE SUMMARY PATIENT: SANDRA OLVERA UNIT: [id number] ADM DATE: 03/22/20 AGE: 79 : 41 SEX: M ROOM/BED: D.2109 AUTHOR: DAYDAYDOC PHYSICIAN: REFERRING PHYSICIAN: DG COHEN MD DATE OF SERVICE: 04/01/20 Discharge Plan Patient Name: SANDRA OLVERA Facility: [facility]:[place] : 1940 Planned Disposition: Anticipated Discharge Date: Discharge Date: Expected LOS: Initial Reviewer: [email or web address] Initial Review Date: 03/22/2020 Generated: 04/01/20 10:29 am Comments DCP- Discharge Planning Updated by [email or web address]: Jennifer Raymundo on 04/01/20 8:[address] Received a call from Yesenia with [facility] and they are his home health provider. DCP- Discharge Planning Updated by [email or web address]: Mercedes Temple on 03/30/20 6:[address] Patient Name: SANDRA OLVERA Admission Status: ER Accout number: [id number] Admission Date: 03-22-2020 : 1940 Admission Diagnosis:HYPERTENSIVE HEART DISEASE WITH HEART FAILURE Attending: DG ARMIJO Current LOS: 8 Anticipated DC Date: Planned Disposition: Primary Insurance: MEDICARE A & B CM met with patient to complete initial dc planning assessment. CM educated patient on the CM role and verbal consent given by patient to complete assessment. Patient lives at home with family. Patient is independent mostly. At discharge patient plans to return home and feels this is a safe discharge. CM discussed availability of home health, rehab services, and medical equipment. Patient states that he has home / portable 02 but doesn't know provider. Patient also states that he has Home Health for therapy on his shoulder but he doesn't know with whom. Per old records he had [facility] in the past. CM spoke to patient regarding inpatient rehab. Patient states he will talk to his son about rehab. CM expressed that therapist recommended rehab prior to going home. Patient will have family to transport home. Patient denied known discharge needs at this time. CM will continue to follow and will assist as needed with dc plans/needs. Discharge Planning Comments: Collar Packer: Mercedes Temple DCPIA - Discharge Planning Initial Assessment Updated by [email or web address]: Mercedes Temple on 03/30/20 7:27 pm * Is the patient Alert and Oriented? Yes * How many steps to enter\exit or inside your home? * PCP PRE[facility]I * Pharmacy [facility] * Preadmission Environment Home with Family * ADLs Independent * Other Equipment HOME/ PORTABLE 02, NEB, WALKER, W/C * Community resources currently utilized Home Health * Please name any agencies selected above. [facility] - (? CURRENT) * Additional services required to return to the preadmission environment? No * Can the patient safely return to the preadmission environment? Yes * Has this patient been hospitalized within the prior 30 days at any hospital? No Last DP export: 03/30/20 6:37 p Patient Name: SANDRA OLVERA Page 08125 at 0930 All edits/amendments must be made on the electronic document DICTATION DATE: 04/01/20929 RESEARCHER: DARI 04/01/20929 RPT#: [id number] DC DATE: STATUS: ADM IN [facility] [address] [place] [address] END OF REPORT
[2020-04-01 10:49] VITALS: BP 133/50
--- NOTE | 2020-04-01 11:08 | NUR ---
OT NOTE: PT PERFORMED WELL TODAY. PT VERY ALERT AND READY TO PARTICIPATE. BED MOB WITH MOD ASSIST..SIT TO STAND WITH MOD ASSIST; AMB TO BATHROOM WITH WITH WALKER AND MIN ASSIST; AMB INTO HALLWAY APPROX 30-40 FT.. FATIGUED QUICKLY BUT GREAT FOR FIRST TIME.. GROOMING WITH SET UP; FEEDING WITH SET UP; TOILETING WITH MOD ASSIST FOR HYGIENE; PRACTICED GETTING BACK TO BED WITH MIN/MOD ASSIST. KEESHA SWEET, OTR/L [phone]
--- NOTE | 2020-04-01 11:13 | NUR ---
Nutrition Follow-up: PO intake fluctuating. Ate ~25% of breakfast this AM. Diet: Renal ADA, 1200 cc fluid restriction PO intake: 50% avg x 5 meals No new wt; last wt: 237# (03/28) Last BM: 03/31 per chart Labs noted: Na 133, K+ 4.0, Glu 124, PO4 5.2, Mg 1.7 Meds noted: Sodium Chloride, Lantus, Humulin, Lasix, KDur, Miralax, Zofran, electrolyte protocol -Encourage PO intake and honor food preferences within diet restrictions. -Need new wt; noted daily wts ordered. -RD following.
[2020-04-01] MEDS ORDERED: Vibramycin 100 MG/D5 IV ×2 (11:36→11:41)
--- NOTE | 2020-04-01 11:41 | MORECARE ---
CASE MANAGEMENT DISCHARGE SUMMARY PATIENT: SANDRA OLVERA UNIT: [id number] ADM DATE: 03/22/20 AGE: 79 : 41 SEX: M ROOM/BED: D.2107 AUTHOR: MIKA NAYLOR PHYSICIAN: REFERRING PHYSICIAN: DG COHEN MD DATE OF SERVICE: 04/01/20 Discharge Plan Patient Name: SANDRA OLVERA Facility: [facility]:[place] : 1940 Planned Disposition: Anticipated Discharge Date: Discharge Date: Expected LOS: Initial Reviewer: [email or web address] Initial Review Date: 03/22/2020 Generated: 04/01/20 12:41 pm Comments DCP- Discharge Planning Updated by [email or web address]: Jennifer Raymundo on 04/01/20 10:[address] I called patient on the phone. He states he would like to go home with the resumption of home health. I spoke with Chuy and informed him that the patient does not want rehab. Chuy Holman APN spoke with patient to encourage inpatient rehab and he states he will go to our inpatient rehab at [facility]. I called Meghan and informed her and they will accept today. I called [facility] and informed them that he would be discharged to inpatient rehab today. DCP- Discharge Planning Updated by [email or web address]: Jennifer Raymundo on 04/01/20 8:[address] Received a call from Yesenia with [facility] and they are his home health provider. DCP- Discharge Planning Updated by [email or web address]: Mercedes Temple on 03/30/20 6:[address] Patient Name: SANDRA OLVERA Admission Status: ER Accout number: [id number] Admission Date: 03-22-2020 : 1940 Admission Diagnosis:HYPERTENSIVE HEART DISEASE WITH HEART FAILURE Attending: DG ARMIJO Current LOS: 8 Anticipated DC Date: Planned Disposition: Primary Insurance: MEDICARE A & B CM met with patient to complete initial dc planning assessment. CM educated patient on the CM role and verbal consent given by patient to complete assessment. Patient lives at home with family. Patient is independent mostly. At discharge patient plans to return home and feels this is a safe discharge. CM discussed availability of home health, rehab services, and medical equipment. Patient states that he has home / portable 02 but doesn't know provider. Patient also states that he has Home Health for therapy on his shoulder but he doesn't know with whom. Per old records [facility] had [facility] past. CM spoke to patient regarding inpatient rehab. Patient states he will talk to his son about rehab. CM expressed that therapist recommended rehab prior to going home. Patient will have family to transport home. Patient denied known discharge needs at this time. CM will continue to follow and will assist as needed with dc plans/needs. Discharge Planning Comments: Leather Drier: Mercedes Temple DCPIA - Discharge Planning Initial Assessment Updated by [email or web address]: Mercedes Temple on 03/30/20 7:27 pm * Is the patient Alert and Oriented? Yes * How many steps to enter\exit or inside your home? * PCP PRE[facility]I * Pharmacy [facility] * Preadmission Environment Home with Family * ADLs Independent * Other Equipment HOME/ PORTABLE 02, NEB, WALKER, W/C * Community resources currently utilized Home Health * Please name any agencies selected above. [facility] - (? CURRENT) * Additional services required to return to the preadmission environment? No * Can the patient safely return to the preadmission environment? Yes * Has this patient been hospitalized within the prior 30 days at any hospital? No Coverage Notice Reviewer: [email or web address] Vu Raymundo Notice Issued Date-Time: 04/01/2020 11:10 Notice Type: IM Discharge Notice Notice Delivered To: Patient Relationship to Patient: Self Aircraft Engine Assembler Name: Delivery Method: HAND - Hand Delivered Nicole Days: Prior Verbal Notification: Recipient Understood Notice: Yes Recipient Signature: Med Rec Note Co-signed by Attending: Coverage Notice Comment: Patient in droplet isolation, so I telephoned him and explained, IMM and given to patient via his nurse. Reviewer: [id number] Vu Raymundo Notice Issued Date-Time: 04/01/2020 11:10 Notice Type: Patient Choice Letter Notice Delivered To: Patient Relationship to Patient: Aircraft Engine Assembler Name: Delivery Method: PHONE - Phone Nicole Days: Prior Verbal Notification: Recipient Understood Notice: Yes Recipient Signature: Med Rec Note Co-signed by Attending: Coverage Notice Comment: [facility] and inpatient rehab at [facility] Last DP export: 04/01/20 8:30 a Patient Name: SANDRA OLVERA Page 85335 at 1141 All edits/amendments must be made on the electronic document DICTATION DATE: 04/01/20 1141 OUTSIDE PHYSICAL DAMAGE APPRAISER: DARI 04/01/20 1141 RPT#: [id number] DC DATE: STATUS: ADM IN [facility] [address] [place] [address] END OF REPORT
--- NOTE | 2020-04-01 13:22 | OP ---
PATIENT NAME: SANDRA OLVERA MEDICAL RECORD: [id number] :[birth year] LOCATION:D.M2 D.2107 ADMISSION DATE:03/22/20 SURGEON: JIGAR CORNEJO MD DATE OF OPERATION: 03/25/2020 PREOPERATIVE DIAGNOSES: 1. New onset atrial fibrillation. 2. Swfyx-sg-bffyvsi congestive heart failure. 3. Acute renal failure. 4. Diabetes mellitus. 5. Hypertension. 6. Dyslipidemia. POSTOPERATIVE DIAGNOSES: 1. New onset atrial fibrillation. 2. Ptflv-ys-tmbaucr congestive heart failure. 3. Acute renal failure. 4. Diabetes mellitus. 5. Hypertension. 6. Dyslipidemia. PROCEDURE: Right IJ 12.5 cm Trialysis catheter placement. SURGEON: Jigar Cornejo MD REPORT OF PROCEDURE: The patient's right neck was prepped and draped in sterile fashion. A 5 mL of 1% lidocaine with epinephrine was infused into the surrounding tissues. Using ultrasound guidance, a needle was used to cannulate the right internal jugular vein and a guidewire was advanced with ease. Over this wire, a dilator was placed followed by the Trialysis catheter. The catheter aspirated nonpulsatile dark blood and flushed easily in all 3 ports. This was sutured in place with 3-0 nylon and dressed appropriately. COMPLICATIONS: None. CONDITION: Stable. ANESTHESIA: Local. BLOOD LOSS: Minimal. Procedure done at the bedside. TRANSINT:[id number] Voice Confirmation ID: [id number] DOCUMENT ID: [id number] JIGAR CORNEJO MD at 1322 CC: [id number] DICTATION DATE: 03/25/20 135 [place]QUITO SPRAYER: 03/25/202008 ADM IN [facility] [id number] [place] [address]
[2020-04-01] MEDS ORDERED: VIBRAMYCIN 100100 MG PO (15:21)
--- NOTE | 2020-04-02 14:45 | MORECARE ---
CASE MANAGEMENT DISCHARGE SUMMARY PATIENT: SANDRA OLVERA UNIT: [id number] ADM DATE: 03/22/20 AGE: 79 : 41 SEX: M ROOM/BED: D.2107 AUTHOR: MIKA NAYLOR PHYSICIAN: REFERRING PHYSICIAN: DG COHEN MD DATE OF SERVICE: 04/02/20 Discharge Plan Patient Name: SANDRA OLVERA Facility: [facility]:[place] : 1940 Planned Disposition: Inpatient Rehab Anticipated Discharge Date: Discharge Date: 04/01/2020 Expected LOS: 0 Initial Reviewer: [email or web address] Initial Review Date: 03/22/2020 Generated: 04/02/20 3:45 pm Comments DCP- Discharge Planning Updated by [email or web address]: Jennifer Boydleon on 04/01/20 10:[address] I called patient on the phone. He states he would like to go home with the resumption of home health. I spoke with Chuy and informed him that the patient does not want rehab. Chuy Holman APN spoke with patient to encourage inpatient rehab and he states he will go to our inpatient rehab at [facility]. I called Meghan and informed her and they will accept today. I called [facility] and informed them that he would be discharged to inpatient rehab today. DCP- Discharge Planning Updated by [id number]: Jennifer Raymundo on 04/01/20 8:[address] Received a call from Yesenia with [facility] and they are his home health provider. DCP- Discharge Planning Updated by [id number]: Mercedes Temple on 03/30/20 6:[address] Patient Name: SANDRA OLVERA Admission Status: ER Accout number: [id number] Admission Date: 03-22-2020 : 1940 Admission Diagnosis:HYPERTENSIVE HEART DISEASE WITH HEART FAILURE Attending: DG ARMIJO Current LOS: 8 Anticipated DC Date: Planned Disposition: Primary Insurance: MEDICARE A & B CM met with patient to complete initial dc planning assessment. CM educated patient on the CM role and verbal consent given by patient to complete assessment. Patient lives at home with family. Patient is independent mostly. At discharge patient plans to return home and feels this is a safe discharge. CM discussed availability of home health, rehab services, and medical equipment. Patient states that he has home / portable 02 but doesn't know provider. Patient also states that he has Home Health for therapy on his shoulder but he doesn't know with whom. Per old records he had [facility] in the past. CM spoke to patient regarding inpatient rehab. Patient states he will talk to his son about rehab. CM expressed that therapist recommended rehab prior to going home. Patient will have family to transport home. Patient denied known discharge needs at this time. CM will continue to follow and will assist as needed with dc plans/needs. Discharge Planning Comments: Manufacturing Quality Technician: Mercedes Temple DCPIA - Discharge Planning Initial Assessment Updated by [email or web address]: Mercedes Temple on 03/30/20 7:27 pm * Is the patient Alert and Oriented? Yes * How many steps to enter\exit or inside your home? * PCP [facility] * Pharmacy [facility] * Preadmission Environment Home with Family * ADLs Independent * Other Equipment HOME/ PORTABLE 02, NEB, WALKER, W/C * Community resources currently utilized Home Health * Please name any agencies selected above. [facility] - (? CURRENT) * Additional services required to return to the preadmission environment? No * Can the patient safely return to the preadmission environment? Yes * Has this patient been hospitalized within the prior 30 days at any hospital? No Coverage Notice Reviewer: [id number] Vu Raymundo Notice Issued Date-Time: 04/01/2020 11:10 Notice Type: IM Discharge Notice Notice Delivered To: Patient Relationship to Patient: Self Web Content Specialist Name: Delivery Method: HAND - Hand Delivered Nicole Days: Prior Verbal Notification: Recipient Understood Notice: Yes Recipient Signature: Med Rec Note Co-signed by Attending: Coverage Notice Comment: Patient in droplet isolation, so I telephoned him and explained, IMM and given to patient via his nurse. Reviewer: [id number] Vu Raymundo Notice Issued Date-Time: 04/01/2020 11:10 Notice Type: Patient Choice Letter Notice Delivered To: Patient Relationship to Patient: Web Content Specialist Name: Delivery Method: PHONE - Phone Nicole Days: Prior Verbal Notification: Recipient Understood Notice: Yes Recipient Signature: Med Rec Note Co-signed by Attending: Coverage Notice Comment: [facility] and inpatient rehab at [facility] Last DP export: 04/01/20 10:41 a Patient Name: SANDRA OLVERA Page [id number] at 1445 All edits/amendments must be made on the electronic document DICTATION DATE: 04/02/201444 SHUTDOWN COORDINATOR: DARI 04/02/201444 RPT#: [id number] DC DATE:04/01/20 STATUS: DIS IN [facility] [address] [place] [address] END OF REPORT
== END 2020-04-01 17:44 | DRG 291 ==
LOC: D.ER 18:58 → D.CVICU 20:48 → D.ER 20:48 → D.EDHOLD 20:48 → D.M2 20:48 → D.CVICU 03-23 19:31 → D.M2 03-30 16:11
PROVIDERS: Family Medicine; Internal Medicine; ADMIT Family Medicine Adult Medicine; ATTEND Family Medicine Adult Medicine
PROC: 05HM33Z Insertion of Infusion Device into Right Internal Jugular Vein, Percutaneous Approach (ICD-10-PCS; principal; 2020-03-25)
DX: I11.0 Hypertensive heart disease with heart failure (principal); J18.9 Pneumonia, unspecified organism; N17.0 Acute kidney failure with tubular necrosis; E87.1 Hypo-osmolality and hyponatremia; I50.23 Acute on chronic systolic (congestive) heart failure; I48.91 Unspecified atrial fibrillation; E78.5 Hyperlipidemia, unspecified; E11.9 Type 2 diabetes mellitus without complications; E03.9 Hypothyroidism, unspecified; C61 Malignant neoplasm of prostate; D64.9 Anemia, unspecified; E83.42 Hypomagnesemia

== ENCOUNTER 2020-04-01 17:50 | Inpatient (IN) | payer MEDICARE, BC ==
[~2020-04-01] VITALS: Ht 170.2 cm; Wt 89.5 kg
--- NOTE | 2020-04-01 17:45 | NUR ---
RECIEVED FROM ACUTE FLOOR.ORIENTED TO ROOM AND SURROUNDING.CL IN REACH.ALARM ON.
[~2020-04-01 17:50] MED LIST changes: +VIBRAMYCIN 100100 MG PO; +Vibramycin 100 MG/D5 IV
--- NOTE | 2020-04-01 18:40 | NUR ---
RECEIVED PT SITTING UP IN BED WATCHING TV. ALERT AND ORIENTED X4. DENIES ANY NEEDS OR PAIN. RIGHT TRIALYSIS CATH DRESSING INTACT. SWAB CAPS IN USE. CONTINUES ON 2L VIA NC. CALL LIGHT WITHIN REACH. FALL PRECAUTIONS IN PLACE. CPOC
--- NOTE | 2020-04-02 01:04 | NUR ---
PT LYING IN BED EYES CLOSED RESTING. RR EVEN AND UNLABORED. CALL LIGHT WITHIN REACH. FALL PRECAUTIONS IN PLACE. CPOC
[2020-04-02 01:07] VITALS: BP 140/66; BMI 36.9
--- NOTE | 2020-04-02 03:26 | NUR ---
PT LYING IN BED EYES CLOSED RESTING. HOB ELEVATED. CONTINUES ON 2L VIA NC. NO SIGNS OF ACUTE DISTRESS NOTED. CALL LIGHT WITHIN REACH. WILL CONTINUE TO MONITOR
--- NOTE | 2020-04-02 05:43 | NUR ---
PT LYING IN BED EYES CLOSED RESTING QUIETLY. NO SIGNS OF ACUTE DISTRESS NOTED. CALL LIGHT AND WATER WITHIN REACH. FALL PRECAUTIONS IN PLACE. CPOC
[2020-04-02 08:07] VITALS: BP 144/68
--- NOTE | 2020-04-02 08:16 | NUR ---
PT RESTING IN BED WITH EYES OPEN CALL LIGHT IN REACH WILL MONITER
--- NOTE | 2020-04-02 09:38 | NUR ---
PATIENT ADMITTED TO REHAB FROM ACUTE FLOOR. DR. ORO IS HIS PCP. HE IS A CLIENT OF [facility]. DME AT HOME IS A WALKER, WHEELCHAIR, O2, AND NEBULIZER. DISCHARGE PLANS ARE FOR PATIENT TO RETURN HOME TO HIS FAMILY. WILL CONTINUE TO FOLLOW WITH PATIENT.
[2020-04-02 10:01] LABS: ANION GAP 10.4 mmol/L (8-16); CALCIUM 8.9 mg/dL (8.5-10.1); CREATININE - SERUM 2.1 mg/dL (0.6-1.3); POTASSIUM - SERUM 3.4 mmol/L (3.5-5.1)
[2020-04-02 10:02] LABS: BASOPHILS 0.2 % (0-2); EOSINOPHILS 2.6 % (0-7); HEMATOCRIT 32.7 % (42.0-54.0); HEMOGLOBIN 10.4 g/dL (13.5-17.5); IMMATURE GRANULOCYTES 1.4 % (0-5); LYMPHOCYTES 14.7 % (15-50); MCH 29.4 pg (26.0-34.0); MCHC 31.8 g/dL (31.0-37.0); MCV 92.4 fL (80.0-100.0); MONOCYTES 11.3 % (2-11); NEUTROPHILS 69.8 % (40-80); PLATELET COUNT 200 10x3/uL (130-400); RBC 3.54 10x6/uL (4.20-6.10); RDW 14.3 % (11.5-14.5); WBC 6.7 10x3/uL (4.8-10.8)
[2020-04-02 10:56] VITALS: Ht 170.2 cm; Wt 89.5 kg
--- NOTE | 2020-04-02 17:50 | NUR ---
PT RESTING IN BED WITH EYES OPEN CALL LIGHT IN REACH NO PROBLEMS WILL MONITER
--- NOTE | 2020-04-02 19:30 | NUR ---
PATIENT RECEIVED SITTING UP IN WHEELCHAIR. ASSESSMENT & VITAL SIGNS DONE. NO C/O PAIN OR DISTRESS. CALL LIGHT & URINAL WITHIN REACH. WILL CONTINUE TO MONITOR. WILL CONTINUE TO MONITOR.
[2020-04-02 20:17] VITALS: BP 142/58
--- NOTE | 2020-04-02 22:00 | NUR ---
PATIENT URINALS EMPTIED OF 500 CC 0F BLOOD TINGED URINE. PAIN MEDICATION GIVEN PER REQUEST. BED LOW. CALL LIGHT & URINALS WITHIN REACH. WILL CONTINUE TO MONITOR.
--- NOTE | 2020-04-03 02:36 | NUR ---
I have reviewed this patient and I concur with the Shift Assessment completed by the Licensed Practical Nurse today this shift.
--- NOTE | 2020-04-03 03:48 | NUR ---
PATIENT EYES CLOSED. RESPIRATIONS 18 & EVEN. BED LOW. CALL LIGHT & URINALS WITHIN REACH. WILL CONTINUE TO MONITOR.
--- NOTE | 2020-04-03 05:58 | NUR ---
PATIENT LEFT ELBOW DRESSING CHANGED. OLD BANDAGE SOAKED WITH CLEAR LIQUID. NO REDNESS OR SWELLING. OPEN AREAS ONLY. PATIENT TOLERATED IT WELL. CALL LIGHT & URINALS WITHIN REACH. WILL CONTINUE TO MONITOR.
[2020-04-03 07:37] LABS: ALBUMIN 3.2 g/dL (3.4-5.0); ANION GAP 12.6 mmol/L (8-16); BILIRUBIN - TOTAL 0.84 mg/dL (0.2-1.3); CALCIUM 8.8 mg/dL (8.5-10.1); CARBON DIOXIDE 30.2 mmol/L (21.0-32.0); MAGNESIUM - SERUM 1.6 mg/dL (1.8-2.4); PHOSPHOROUS 5.3 mg/dL (2.5-4.9); POTASSIUM - SERUM 3.8 mmol/L (3.5-5.1); PROTEIN - SERUM 6.6 g/dL (6.4-8.2)
[2020-04-03 08:00] VITALS: BP 113/55
--- NOTE | 2020-04-03 12:02 | NUR ---
HAS BEEN IN THERAPY THIS MORNING. SCAB COME OF A SORE ON LEFT ELBOW. SMALL AMT OF BLOOD NOTED. BANDAID APPLIED. PINK TINGED URINE NOTED. DENIES PAIN OR FEELING LIKE HE NEEDS TO VOID.
--- NOTE | 2020-04-03 19:30 | NUR ---
PATIENT RECEIVED SITTING UP IN WHEELCHAIR. SON IN ROOM. ASSESSMENT & VITAL SIGNS DONE. SON AT PATIENT SIDE. CALL LIGHT & URINALS WITHIN REACH. WILL CONTINUE TO MONITOR.
--- NOTE | 2020-04-03 20:25 | NUR ---
PATIENT & SON WANTS EGGS OFF ALLERGY LIST. PATIENT EATS EGGS, NO REACTION. PATIENT HAD REACTION TO FLU SHOT WITH EGG BASE.
[2020-04-03 20:39] VITALS: BP 143/62
--- NOTE | 2020-04-04 05:22 | NUR ---
I have reviewed this patient and I concur with the Shift Assessment completed by the Licensed Practical Nurse today this shift.
[2020-04-04 08:00] VITALS: BP 110/51
--- NOTE | 2020-04-04 12:12 | NUR ---
SITTING UP IN BED FOR LUNCH. DENIES PAIN OR SOB. PAIN MEDS GIVEN EARLIER. RT WRIST DROP NOTED. DECLINED TO PUT RT HAND BRACE ON.
--- NOTE | 2020-04-04 17:51 | NUR ---
SITTING UP IN WC IN ROOM EATING SUPPER. RT JUGULAR TRIALYSIS CATHETER LEAKED A FEW DROPS OF FRESH BLOOD EARLIER ONTO SHIRT. VIRIDIANA SEGUNDO NOTIFIED WELL ICU FOR SANDBAG. AREA APPEARS TO HAVE STOPPED LEAKING AT PRESENT. HE STILL HAS PENILE AND SCROTAL EDEMA. HIS HIPS AND SIDE ARE FIRM TO TOUCH AND HE HAS 4+ EDEMA TO BLE. HE IS ON OXYGEN 4LNC. VOIDED OUTPUT IS LESS THAN 300 ML TODAY. HE IS ON 1200 ML FLUID RESTRICTION. CALL LIGHT IN REACH
--- NOTE | 2020-04-04 19:58 | NUR ---
PATIENT RECEIVED SITTING UP IN WHEELCHAIR AT BEDSIDE. CALL LIGHT & URINALS WITHIN REACH. NO BLOOD DROPS NOTED AT THIS TIME. SON IN ROOM. WILL CONTINUE TO MONITOR.
[2020-04-04 20:00] VITALS: BP 143/62
--- NOTE | 2020-04-05 02:55 | NUR ---
I have reviewed this patient and I concur with the Shift Assessment completed by the Licensed Practical Nurse today this shift.
[2020-04-05 08:32] VITALS: BP 105/52
[2020-04-05 08:51] LABS: ANION GAP 6.9 mmol/L (8-16); CALCIUM 8.6 mg/dL (8.5-10.1); CARBON DIOXIDE 32.9 mmol/L (21.0-32.0); CREATININE - SERUM 2.5 mg/dL (0.6-1.3); POTASSIUM - SERUM 3.8 mmol/L (3.5-5.1)
[2020-04-05 08:54] LABS: BASOPHILS 0.3 % (0-2); EOSINOPHILS 2.8 % (0-7); HEMATOCRIT 30.2 % (42.0-54.0); HEMOGLOBIN 9.5 g/dL (13.5-17.5); IMMATURE GRANULOCYTES 0.6 % (0-5); MCHC 31.5 g/dL (31.0-37.0); MCV 92.1 fL (80.0-100.0); MONOCYTES 10.4 % (2-11); NEUTROPHILS 60.9 % (40-80); PLATELET COUNT 187 10x3/uL (130-400); RBC 3.28 10x6/uL (4.20-6.10); RDW 14.1 % (11.5-14.5); WBC 7.1 10x3/uL (4.8-10.8)
--- NOTE | 2020-04-05 09:44 | RHP ---
PATIENT: SANDRA OLVERA MEDICAL RECORD: [id number] ACCOUNT: [id number] [id number] AD[facility] DATE: 04/01/20 REHABILITATION HISTORY AND PHYSICAL EXAMINATION POST ADMISSION PHYSICIAN EXAMINATION ADMITTING DIAGNOSIS: Congestive heart failure induced myopathy. HISTORY OF PRESENT ILLNESS: The patient is a 79-year-old gentleman who is admitted secondary to congestive heart failure myopathy. He has got new-onset AFib, increased dyspnea and bilateral lower extremity edema. This came on approximately about 10 to 14 days prior to admission. He had been on 80 mg of Lasix prior to arrival, but had not seen much improvement. He had been having some heart palpitations, got a history of arrhythmias for which he takes metoprolol. He also has been on anticoagulation for this. Reports he had pain to his right hand and has some wrist drop and he is under the care of an orthopedist at this time. EKG showed atrial fibrillation. He recently was started on Cardizem and Bumex drip secondary to his need for diuresis and his arrhythmia. The patient has had surgical consult for Trialysis catheter for hemodialysis. He had a hemodialysis session and is doing much better. His confusion seems to be somewhat improved. He previously was living with his son and was independent with ADLs and mobility using a cane. Currently, he has had prolonged immobility, progressive generalized weakness, especially in his lower extremities affecting his tolerance to PT. He is very fatigued, has limited flexion and extension, proximal muscle strength is decreased. He is mod to max assist for ADLs, mod to max assist for sit to stand and bed to chair. He is very motivated to get back to his prior level of functioning and return home. COMORBIDITIES: In this patient include acute kidney injury, weakness, new-onset atrial fibrillation, new-onset hemodialysis, got a history of electrolyte abnormalities, urinary retention, diabetes, congestive heart failure, pleural effusions and hypocalcemia. PAST MEDICAL HISTORY: Significant for cataracts, diabetes, hypertension, dyslipidemia, prostate cancer. PAST SURGICAL HISTORY: Includes cataract surgery, hip surgery. He has had a shoulder surgery. ALLERGIES: CODEINE AND ANY TYPE OF EGG PRODUCTS. CURRENT MEDICATIONS: Include metformin XR 500 mg daily, he is on Floranex daily, he is on Bactroban ointment as needed, potassium 10 mEq daily, polyethylene glycol 17 grams in 8 ounces of water daily, lisinopril 10 mg daily, furosemide 40 mg daily, glipizide XL 10 mg daily, Xopenex updrafts as needed, Protonix 40 mg daily, Flomax 0.4 mg daily, Pravachol 40 mg daily, he is on Percocet 10/325 one tab every 4 to 6 hours p.r.n., he is on Singulair 10 mg at bedtime, metoprolol 25 mg b.i.d., Neurontin 600 mg b.i.d., doxycycline 100 mg b.i.d., Eliquis 2.5 mg b.i.d., Tylenol 650 mg every 6 hours p.r.n. and Tessalon Perles 100 mg t.i.d. HABITS: No current alcohol or tobacco use. FAMILY HISTORY: Noncontributory. HISTORY AND PHYSICAL [id number] SANDRA OLVERA SOCIAL HISTORY: The patient hopes to return back home and get back to his prior level of functioning. REVIEW OF SYSTEMS: GENERAL: Does complain of some weakness and fatigue. HEENT: Denies cold, cough, or congestion. CARDIOVASCULAR: Denies any chest pain. PHYSICAL EXAMINATION: VITAL SIGNS: Stable, afebrile. GENERAL: A somewhat obese gentleman in no acute distress upon exam. HEENT: Normocephalic and atraumatic. Mucosa moist. NECK: Supple. No lymphadenopathy. LUNGS: Clear in upper riggs, decreased breath sounds in the bases. HEART: Irregular rate and rhythm. ABDOMEN: Soft, benign and nondistended. Positive bowel sounds times 4. EXTREMITIES: No clubbing, cyanosis. Does have some peripheral edema. NEUROLOGIC: Does have noted weakness. LABORATORY DATA: Blood counts are pending at this time. ASSESSMENT: This is a 79-year-old gentleman admitted to the rehab with a working diagnosis of congestive heart failure induced myopathy. The patient has potential to make improvement. We instituted the following multidisciplinary therapies, including not limited to physical, occupational, respiratory, speech, nutritional services, prosthetics and orthotics. Given his complex medical condition and risks for more complications, rehabilitation services cannot be provided at a low level of care such a snf facility. PLAN: 1. Admit to [facility] for inpatient therapy to include the following disciplines; A. Physical therapy to improve gait, all transfer skills and bed mobility to a modified independent level. B. Occupational therapy to improve activities of daily living. C. Case management to help with discharge planning and placement options. D. Nutrition to assist with nutritional needs. E. Rehabilitation nursing to assist in monitoring patient's underlying medical condition and to assist with any type bowel or bladder management. 2. The patient's current medication and medical care will be continued. 3. Placed on standard fall precautions. 4. The patient's estimated length of stay is approximately 7-10 days. 5. We will discuss the patient during care team staff meeting this week. I will go ahead and follow up lab work. I am going to get a BMP and BNP on him on Sunday and we will see again in the a.m. TRANSINT:[id number] Voice Confirmation ID: [id number] DOCUMENT ID: [id number] LAILA notes whether there has been none or any medical/functional change since admission: - No change since preadmission screen. LAILA attests patient continues to be appropriate for IRF: HISTORY AND PHYSICAL [id number] SANDRA OLVERA - Continues to be appropriate. CAITLIN RIOS MD at 0944 CC: [id number] DICTATION DATE: 04/02/20 0833 GLOBAL TRANSPORTATION MANAGER: 04/02/20 0951 ADM IN [place] [id number] [place] [id number]
--- NOTE | 2020-04-05 16:17 | NUR ---
Nutrition Follow-up: Chart reviewed, noted patient had HD once on 03/28/20, not currently on routine HD. Diet: Renal ADA, 1200mL fluid restriction PO intake: ~42% average x last 6 meals Last BM: 03/31/20. Wt: 235# (04/02/20) Meds noted: magox, lantus, lasix, micro-k, miralax, glipizide Labs noted: Mag 1.7(L), Na 132(L), BUN 44(H), Cr 2.5(H), GFR 27(L), POC Glu 182(H), K 3.8(WNL)- 04/05/20, PO4 5.3(H)- 04/03/20 Recommend continue current diet. Will add Supplena oral supplement BID. RD following.
--- NOTE | 2020-04-05 19:42 | NUR ---
PT UP IN CHAIR, SON IN ROOM, NO NEEDS NOTED, RESPIRATIONS EVEN UNLABORED, FALL PRECAUTIONS IN PLACE, FLUID RESTRICTIONS 300ML LEFT FOR THIS SHIFT, EDEMA LEFT FOOT DRAINAGE
[2020-04-05 21:14] VITALS: BP 106/63
--- NOTE | 2020-04-06 03:32 | NUR ---
PT ASLEEP,AROUSES EASILY TO VOICE, RESPIRATIONS EVEN/UNLABORED, NO IMMEDIATE NEEDS NOTED, FALL PRECAUTIONS IN PLACE, FLUIDS/CALL LIGHT WITHIN REACH
[2020-04-06 07:45] LABS: BASOPHILS 0.2 % (0-2); EOSINOPHILS 2.9 % (0-7); HEMATOCRIT 27.8 % (42.0-54.0); HEMOGLOBIN 9.1 g/dL (13.5-17.5); IMMATURE GRANULOCYTES 0.5 % (0-5); LYMPHOCYTES 24.5 % (15-50); MCHC 32.7 g/dL (31.0-37.0); MCV 91.7 fL (80.0-100.0); MEAN PLATELET VOLUME 9.7 fL (7.4-10.4); MONOCYTES 11.2 % (2-11); NEUTROPHILS 60.7 % (40-80); PLATELET COUNT 156 10x3/uL (130-400); RBC 3.03 10x6/uL (4.20-6.10); RDW 14.3 % (11.5-14.5); WBC 5.6 10x3/uL (4.8-10.8)
--- NOTE | 2020-04-06 08:00 | NUR ---
SHIFT ASSMT COMPLETED.BREAKFAST GIVEN.CL IN REACH.
[2020-04-06 08:04] VITALS: BP 100/46
[2020-04-06 08:15] LABS: ANION GAP 7.6 mmol/L (8-16); CALCIUM 8.5 mg/dL (8.5-10.1); CARBON DIOXIDE 32.4 mmol/L (21.0-32.0); CREATININE - SERUM 2.3 mg/dL (0.6-1.3)
--- NOTE | 2020-04-06 12:00 | NUR ---
UP OOB IN CHAIR EATING LUNCH.
--- NOTE | 2020-04-06 19:58 | NUR ---
PT IN BED WATCHING TV, NO NEEDS NOTED, RESPIRATIONS EVEN/UNLABORED, FALL PRECAUTIONS IN PLACE, FLUIDS/CALL LIGHT WITHIN REACH
[2020-04-06 20:02] VITALS: BP 135/60
--- NOTE | 2020-04-07 04:14 | NUR ---
PT ASLEEP AROUSES EASILY TO VOICE, NO NEEDS NOTED, RESPIRATIONS EVEN/UNLABORED, FALL PRECAUTIONS IN PLACE, FLUIDS/CALL LIGHT WITHIN REACH
[2020-04-07 06:36] LABS: BASOPHILS 0.5 % (0-2); EOSINOPHILS 3.6 % (0-7); HEMOGLOBIN 8.7 g/dL (13.5-17.5); IMMATURE GRANULOCYTES 0.5 % (0-5); LYMPHOCYTES 22.8 % (15-50); MCH 28.7 pg (26.0-34.0); MCHC 31.1 g/dL (31.0-37.0); MCV 92.4 fL (80.0-100.0); MEAN PLATELET VOLUME 10.4 fL (7.4-10.4); MONOCYTES 11.3 % (2-11); NEUTROPHILS 61.3 % (40-80); PLATELET COUNT 152 10x3/uL (130-400); RBC 3.03 10x6/uL (4.20-6.10); RDW 14.3 % (11.5-14.5); WBC 4.4 10x3/uL (4.8-10.8)
[2020-04-07 07:39] LABS: ANION GAP 10.3 mmol/L (8-16); CALCIUM 8.5 mg/dL (8.5-10.1); CARBON DIOXIDE 31.5 mmol/L (21.0-32.0); CREATININE - SERUM 1.9 mg/dL (0.6-1.3); POTASSIUM - SERUM 3.8 mmol/L (3.5-5.1)
[2020-04-07 08:00] VITALS: BP 116/57
--- NOTE | 2020-04-07 09:00 | NUR ---
WEIGHT TODAY 225 LBS 8OZ.
--- NOTE | 2020-04-07 13:57 | NUR ---
CARE TEAM MEETING: PATIENT IS DOING WELL IN THERAPY. HIS TENATIVE DC DATE IS 04/21/20. WILL CONTINUE TO FOLLOW WITH PATIENT. HE WILL BE RA AT NEXT MEETING.
--- NOTE | 2020-04-07 19:26 | NUR ---
PT UP IN CHAIR, SON IN ROOM, COLLECTION SPECIALIST CHANGING BED, NO NEEDS NOTED, FALL PRECAUTIONS IN PLACE, RESPIRATIONS EVEN/UNLABORED, FLUIDS/CALL LIGHT WITHIN REACH
[2020-04-07 21:41] VITALS: BP 100/70
--- NOTE | 2020-04-08 06:33 | NUR ---
DRSG CHANGES DUE AT 0500 TO BILATERAL FEET, I DID NOT DO, DUE TO PT SHOWER SCHEDULED TODAY.
[2020-04-08 07:44] VITALS: BP 126/58
[2020-04-08 07:47] LABS: HEMATOCRIT 24.8 % (42.0-54.0); LYMPHOCYTES 21.4 % (15-50); MCHC 32.3 g/dL (31.0-37.0); MCV 92.9 fL (80.0-100.0); MEAN PLATELET VOLUME 10.3 fL (7.4-10.4); NEUTROPHILS 65.9 % (40-80); PLATELET COUNT 131 10x3/uL (130-400); RBC 2.67 10x6/uL (4.20-6.10); RDW 13.9 % (11.5-14.5); WBC 3.8 10x3/uL (4.8-10.8)
[2020-04-08 07:59] LABS: ANION GAP 4.7 mmol/L (8-16); CALCIUM 8.8 mg/dL (8.5-10.1); CARBON DIOXIDE 34.7 mmol/L (21.0-32.0); CREATININE - SERUM 1.7 mg/dL (0.6-1.3); POTASSIUM - SERUM 3.4 mmol/L (3.5-5.1)
--- NOTE | 2020-04-08 12:30 | NUR ---
SITTING UP IN WC IN ROOM EATING LUNCH. SMALL AMOUNT OF BLOOD NOTED DRIPPING FROM RT NECK TRIALYSIS CATH. PRESSURE APPLIED AND BLEEDING STOPPED. HE HAS HAD SOME N/V THIS MORNING. BOTH FEET AND ANKLES ARE SWOLLEN TO 4+ WITH DRESSINGS TO BOTH FEET FOR WEEPING EDEMA. CALL LIGHT IN REACH
--- NOTE | 2020-04-08 13:40 | NUR ---
Nutrition Follow-up: Diet: Renal ADA, 1200mL fluid restriction + Suplena BID PO intake: 50% x 3 meals yesterday. He states that his appetite is improving some. He does not like Suplena and is NOT drinking it. Last BM: 04/07/20. Wt: 235# (04/02/20) Meds noted: lasix, NaCl, MagOx, lantus, micro-K, miralax Labs noted: Na 134(L), K 3.4(L), BUN 32(H), Cr 1.7(H), GFR 42(L), PO4 5.3(H)-04/03 Recommend: -Continue current diet or per MD -Will discontinue Suplena oral nutrition supplement per patient request -Encouraged PO intake. Patient denies needs from dietary at this time. -RD following
--- NOTE | 2020-04-08 18:00 | NUR ---
BLOOD HANGING. SON VISITING. HE C/O COLDNESS BUT NO FEVER.
--- NOTE | 2020-04-08 19:58 | NUR ---
PT GETTING PRBC'S, SON IN ROOM UPSET STATES NEEDS PRN PAIN MED CAN'T GET TO CALL HIM, STATES FATHER HAS SOMETHING NEW GOING WRONG EVERY DAY, SAYS EVERYBODY RUSHES IN AND OUT FATHER NOT BEING PROPERLY TAKEN CARE OF, PT HAS NO IMMEDIATE NEEDS AT THIS TIME, FALL PRECAUTIONS IN PLACE, RT COMING TO GIVE BREATHING TX AT SONS REQUEST NOT PT'S, FLUIDS/CALL LIGHT WITHIN REACH
[2020-04-09 07:21] LABS: BASOPHILS 0.2 % (0-2); EOSINOPHILS 3.6 % (0-7); HEMATOCRIT 29.6 % (42.0-54.0); HEMOGLOBIN 9.6 g/dL (13.5-17.5); IMMATURE GRANULOCYTES 0.4 % (0-5); LYMPHOCYTES 24.1 % (15-50); MCH 29.5 pg (26.0-34.0); MCHC 32.4 g/dL (31.0-37.0); MCV 91.1 fL (80.0-100.0); MEAN PLATELET VOLUME 10.8 fL (7.4-10.4); MONOCYTES 10.1 % (2-11); NEUTROPHILS 61.6 % (40-80); PLATELET COUNT 139 10x3/uL (130-400); RDW 14.1 % (11.5-14.5)
[2020-04-09 07:35] LABS: ANION GAP 3.9 mmol/L (8-16); CALCIUM 8.7 mg/dL (8.5-10.1); CARBON DIOXIDE 36.4 mmol/L (21.0-32.0); CREATININE - SERUM 1.6 mg/dL (0.6-1.3); POTASSIUM - SERUM 3.3 mmol/L (3.5-5.1)
[2020-04-09 07:42] LABS: RBC 3.25 10x6/uL (4.20-6.10); WBC 4.8 10x3/uL (4.8-10.8)
[2020-04-09 08:29] VITALS: BP 127/67
--- NOTE | 2020-04-09 15:05 | NUR ---
SITTING UP IN WC IN ROOM WATCHING TV. DR. MORRELL D/C HIS RT NECK TRIALYSIS CATH. AFTER PRESSURE APPLIED, OCCLUSIVE DSG APPLIED TO SEAL. MD ALSO ORDERED DIFFERENT DIURETICS AND PT HAS BEEN HAVING INCREASED VOIDING EVER SINCE. HE HAS 4+ EDEMA TO HIS LEGS AND FEET. HE CONTINUES TO WEAR OXYGEN AT 2LNC. NO COUGHING OR INCREASED SOB NOTED. HE STATES HIS PAIN IS UNDER CONTROL WITH CURRENT PAIN MEDS.
[2020-04-09 20:00] VITALS: BP 135/68
--- NOTE | 2020-04-09 20:00 | NUR ---
AWAKE AND ALERT. ASSISTED TO BED PER HIS REQUEST. SALINE LOCK TO LEFT FOREARM INTACT. O2/2L ON PER NASAL CANNULA. IN DROPLET ISOLATION. CALL LIGHT IN REACH.
[2020-04-10 04:32] LABS: BASOPHILS 0.2 % (0-2); EOSINOPHILS 2.8 % (0-7); HEMATOCRIT 31.5 % (42.0-54.0); HEMOGLOBIN 10.2 g/dL (13.5-17.5); IMMATURE GRANULOCYTES 0.6 % (0-5); LYMPHOCYTES 28.5 % (15-50); MCH 29.5 pg (26.0-34.0); MCHC 32.4 g/dL (31.0-37.0); MEAN PLATELET VOLUME 10.3 fL (7.4-10.4); MONOCYTES 11.6 % (2-11); NEUTROPHILS 56.3 % (40-80); PLATELET COUNT 132 10x3/uL (130-400); RBC 3.46 10x6/uL (4.20-6.10); WBC 4.9 10x3/uL (4.8-10.8)
[2020-04-10 04:41] LABS: CARBON DIOXIDE 37.2 mmol/L (21.0-32.0); CREATININE - SERUM 1.5 mg/dL (0.6-1.3); PHOSPHOROUS 3.7 mg/dL (2.5-4.9); POTASSIUM - SERUM 3.2 mmol/L (3.5-5.1)
--- NOTE | 2020-04-10 05:33 | NUR ---
AM LABS DONE EARLIER AND WEIGHT DONE. RESTING IN BED WITH NO DISTRESS NOTED. HAS SMALL SKIN TEAR ON LEFT ELBOW. AREA CLEANED AND COVERED WITH CLEAR TEGADERM.
[2020-04-10 08:00] VITALS: BP 135/74
--- NOTE | 2020-04-10 19:30 | NUR ---
PT VISITING WITH SON. SIMEON. PT REPORTS THAT HE FEELS LIKE THE SWELLING IS GOING DOWN IN HIS FEET. HE DENIES NEEDS AT THIS TIME. BED IS LOW AND CALL LIGHT WITHIN REACH.
[2020-04-10 20:15] VITALS: BP 138/74
[2020-04-11 08:00] VITALS: BP 114/52
--- NOTE | 2020-04-11 08:00 | NUR ---
SHIFT ASSMT COMPLETED.
[2020-04-11 20:00] VITALS: BP 141/93
--- NOTE | 2020-04-11 20:00 | NUR ---
PATIENT REMAINS IN DROPLET ISOLATION. PATIENT IS ALERT/ORIENT. CALL LIGHT WITHIN REACH. VOICES NO NEEDS AT THIS TIME.
--- NOTE | 2020-04-12 00:42 | NUR ---
PATIENT TURNED RUG RENOVATOR LIGHT. ASKED THIS NURSE TO EMTIEY URINAL. VOICES NO OTHER NEEDS
--- NOTE | 2020-04-12 03:26 | NUR ---
I have reviewed this patient and I concur with the Shift Assessment completed by the Licensed Practical Nurse today this shift.
--- NOTE | 2020-04-12 04:10 | NUR ---
DRESSING CHANGED TO THE TOP OF THE LEFT FOOT. BLISTER HAS DRAINED. AREA CLEANED WITH WOUND BUSINESS DIRECTOR. TELFA NON ADHERANT DRSG AND COVERED WITH PADING. RIGHT FOOT HEEL. VERY SMALL HEALING BLISTER. DRESSING CHANGED. CLEANED WITH WOUND CLEANSER. PATTED DRY. COVERED WITH MEPILEX DRESSING. BOTH FOOT HAVE SHOE COVERS ON TO PROTECT AND SECURE DRESSINGS.
[2020-04-12 07:20] LABS: BASOPHILS 0.4 % (0-2); HEMOGLOBIN 10.9 g/dL (13.5-17.5); IMMATURE GRANULOCYTES 0.4 % (0-5); LYMPHOCYTES 27.6 % (15-50); MCH 30.1 pg (26.0-34.0); MCV 91.2 fL (80.0-100.0); MEAN PLATELET VOLUME 10.9 fL (7.4-10.4); MONOCYTES 12.6 % (2-11); PLATELET COUNT 138 10x3/uL (130-400); RBC 3.62 10x6/uL (4.20-6.10); RDW 13.8 % (11.5-14.5); WBC 5.1 10x3/uL (4.8-10.8)
[2020-04-12 07:33] LABS: ANION GAP 8.9 mmol/L (8-16); CALCIUM 8.7 mg/dL (8.5-10.1); CARBON DIOXIDE 34.1 mmol/L (21.0-32.0); CREATININE - SERUM 1.4 mg/dL (0.6-1.3)
[2020-04-12 08:00] VITALS: BP 122/60
--- NOTE | 2020-04-12 15:42 | NUR ---
SITTING UP IN WC IN ROOM. IS ANXIOUS TO DC TOMORROW BUT WILL NOT EXPLAIN WHY HE INSISTS ON LEAVING. HE JUST SAYS "NO MATTER WHAT, I'M LEAVING". HE DENIES INCREASED PAIN OR SOB. STILL ON OXYGEN. CALL LIGHT IN REACH
--- NOTE | 2020-04-12 20:00 | NUR ---
AWAKE AND ALERT. RESTING IN BED WITH RESPRIATIONS UNLABORED. GENERALIZED EDEMA NOTED. USES URINAL PRN. O2/3L ON PER NASAL CANNULA. DROPLET ISOLATION IN PLACE. DRESSINGS DRY AND INTACT TO RIGHT HEEL AND LEFT FOOT. CALL LIGHT IN REACH.
[2020-04-12 20:29] VITALS: BP 149/72
--- NOTE | 2020-04-13 00:27 | NUR ---
SLEEPING WITH NO DISTRESS NOTED. RESPRIATIONS UNLABORED.
[2020-04-13 05:01] LABS: BASOPHILS 0.5 % (0-2); EOSINOPHILS 1.5 % (0-7); HEMATOCRIT 36.1 % (42.0-54.0); HEMOGLOBIN 11.7 g/dL (13.5-17.5); IMMATURE GRANULOCYTES 0.5 % (0-5); LYMPHOCYTES 26.7 % (15-50); MCH 29.5 pg (26.0-34.0); MCHC 32.4 g/dL (31.0-37.0); MCV 90.9 fL (80.0-100.0); MEAN PLATELET VOLUME 10.8 fL (7.4-10.4); MONOCYTES 13.1 % (2-11); NEUTROPHILS 57.7 % (40-80); PLATELET COUNT 162 10x3/uL (130-400); RBC 3.97 10x6/uL (4.20-6.10); RDW 13.6 % (11.5-14.5); WBC 5.9 10x3/uL (4.8-10.8)
[2020-04-13 05:12] LABS: ALBUMIN 3.4 g/dL (3.4-5.0); ANION GAP 10.4 mmol/L (8-16); BILIRUBIN - TOTAL 0.97 mg/dL (0.2-1.3); CALCIUM 8.9 mg/dL (8.5-10.1); CARBON DIOXIDE 34.3 mmol/L (21.0-32.0); CREATININE - SERUM 1.4 mg/dL (0.6-1.3); MAGNESIUM - SERUM 1.9 mg/dL (1.8-2.4); PHOSPHOROUS 3.9 mg/dL (2.5-4.9); PROTEIN - SERUM 7.5 g/dL (6.4-8.2)
[2020-04-13 05:14] LABS: POTASSIUM - SERUM 2.7 mmol/L (3.5-5.1)
--- NOTE | 2020-04-13 06:43 | NUR ---
CRITICAL POTASSIUM OF 2.7. MESSAGE LEFT FOR DR RIOS ON ROUNDING SHEET. AM DOSE OF KCL 20MEQ GIVEN PO.
[2020-04-13 08:00] VITALS: BP 118/65
--- NOTE | 2020-04-13 08:00 | NUR ---
ANXIOUS TO GO HOME. HAS LOW K+, 2.7. DR RISO AND RENAL MD NOTIFIED.
[2020-04-13] MEDS ORDERED: K-DUR20 MEQ PO (09:53)
[2020-04-13] MEDS ORDERED: MUPIROCIN22 GM NASAL (09:53)
--- NOTE | 2020-04-13 11:40 | NUR ---
SITTING IN WC IN ROOM AND C/O SUDDEN DIZZINESS. V/S TAKEN AND WAS 64/35, HR 57. WAS PLACED IN BED, FEET UP. B/P CAME BACK UP TO 133/66, HR 72. IV LEFT FA PATENT AND IS GETTING K+ RIDER FOR LOW K+. DR VALLEJO ROUNDED AND PT WAS SEEN.
--- NOTE | 2020-04-13 11:45 | NUR ---
PATIENT DISCHARGING HOME TODAY WITH FAMILY. [facility] WILL RESUME THERAPY AT HOME. NO NEW DME NEEDED AT THIS TIME. DR. ORO OFFICE TO CALL PATIENT WITH AN APPOINTMENT AND INSTRUCTED PATIENT TO CALL. DR. KRISHNAN 04/20/20 @ 11:40, DR. HOLCOMB 05/03/20 @ 9:30. CHUCK SIGNED, IMM SERVED AND EXPLAINED, ONE GIVEN TO PATIENT AND ONE FILED IN CHART. NO COMPARE DATA REVIEWED PATIENT IS ESTABLISHED WITH [facility] AND WOULD LIKE TO CONTINUE. DC INSTRUCTIONS FAXED TO PCP, HOME HEALTH AND REVIEWED WITH PATIENT.PATIENT WAS ENCOURAGED TO STAY HERE IN REHAB PATIENTS BLOOD PRESSURE CONTINUES TO DROP, BUT HE STATES THAT HE HAS TO GO HOME TODAY WITHOUT ANY EXPLAINATION.
--- NOTE | 2020-04-13 15:30 | NUR ---
PT RESTING QUIETLY IN BED. HE HAS BEEN RESTING IN BED SINCE THIS MORNING WHEN HE C/O FEELING BAD AND HIS B/P WAS LOW. HE STILL INSISTS ON D/C HOME TODAY AND WILL NOT STAY IN HOSP. NURSE ENCOURAGED HIM THROUGH OUT THE DAY TO RECONSIDER AND STAY IN HOSPITAL HE DOES NOT APPEAR TO BE MEDICALLY STABLE TO DC HOME. HE STILL REFUSES SAYING HE CAN NOT PUT OFF LEAVING TODAY. HE DID C/O K+ IV WAS BURNING HIS ARM SO RATE WAS SLOWED DOWN TO INFUSE MORE SLOWELY AND HE TOLERATED BETTER. CALL LIGHT IN REACH
== END 2020-04-13 18:21 | disposition home health service (06) | DRG 91 ==
LOC: D.REHAB 17:50
PROVIDERS: Internal Medicine; Internal Medicine Nephrology; ADMIT Emergency Medicine; ATTEND Emergency Medicine
DX: G72.89 Other specified myopathies (principal); N17.0 Acute kidney failure with tubular necrosis; J15.212 Pneumonia due to Methicillin resistant Staphylococcus aureus; J90 Pleural effusion, not elsewhere classified; E87.1 Hypo-osmolality and hyponatremia; I48.91 Unspecified atrial fibrillation; R53.1 Weakness; R33.9 Retention of urine, unspecified; I50.9 Heart failure, unspecified; E83.51 Hypocalcemia; Z99.2 Dependence on renal dialysis; I95.9 Hypotension, unspecified; D64.9 Anemia, unspecified; E83.42 Hypomagnesemia; E11.65 Type 2 diabetes mellitus with hyperglycemia

== ENCOUNTER → 2020-11-16 14:05 | Outpatient (CLI) | payer MEDICARE, BC ==
[2020-06-26 09:08] VITALS: BMI 32.1
[~2020-11-16 14:05] MED LIST changes: +CELEXA20 MG PO; +FUROSEMIDE40 MG PO; +K-DUR20 MEQ PO; +MUPIROCIN22 GM NASAL; +RELAFEN750 MG PO; +TORSEMIDE20 MG PO
== END | disposition home or self-care (01) ==
LOC: D.RT 10-01 13:00 → D.CT 10-01 14:00 → D.RT 10-01 14:30
PROVIDERS: ATTEND Internal Medicine Pulmonary Disease
DX: R06.09 Other forms of dyspnea (principal); R93.89 Abnormal findings on diagnostic imaging of other specified body structures